=== PATIENT | male | born 1950 | race Hispanic/Latino ===

== ENCOUNTER 2018-10-21 17:22 | Inpatient (IN) | payer MEDICARE ==
[~2018-10-21] VITALS: Ht 167.6 cm; Wt 76.4 kg
[~2018-10-21 17:22] MED LIST: AMLODIPINE BESY10 MG PO; ASPIR 8181 MG PO; CARVEDILOL6.25 MG PO; FISH OIL300 MG PO; LOSARTAN POTAS100 MG PO; METFORMIN HCL1000 MG PO; METFORMIN HCL850 MG PO; MICARDIS40 MG PO; NITROSTAT0.4 MG SL; PLAVIX75 MG PO; ZOCOR40 MG PO
[2018-10-21] MEDS ORDERED: PANTOPRAZOLE 40 MG 10ML VIAL IV STA (18:35)
[2018-10-21] MEDS ORDERED: SODIUM CHLORIDE 0.9% 1000ML 1,000 ML IV STA (18:35)
[2018-10-21] MEDS ORDERED: MORPHINE SULFATE INJ 4 MG/ML INJ 1ML IV ONE (19:45)
[2018-10-21] MEDS ORDERED: MORPHINE SULFATE 5 MG/ML VIAL IV ONE (19:45)
[2018-10-21 19:46] LABS: BASOPHILS % 0.3 % (0.0-1.0); EOSINOPHILS % 0.3 % (0.0-6.0); HEMOGLOBIN 14.9 g/dL (14.0-18.0); LYMPHOCYTES # (AUTO) 0.9 (1.0-3.2); LYMPHOCYTES % 9.4 % (18.0-39.1); MEAN CORPUSCULAR HEMOGLOBIN 30.8 pg (28-32); MEAN CORPUSCULAR HGB CONC 35.5 g/dL (31-35); MEAN CORPUSCULAR VOLUME 86.8 fL (81-99); MONOCYTES # (AUTO) 0.7 (0.2-0.8); MONOCYTES % 7.8 % (4.4-11.3); NEUTROPHILS # (AUTO) 7.7 (2.1-6.9); NEUTROPHILS % 81.9 % (38.7-80.0); PLATELET COUNT 251 x10e3/uL (140-360); RED BLOOD COUNT 4.84 x10e6/uL (4.3-5.7); RED CELL DISTRIBUTION WIDTH 12.6 % (11.7-14.4)
[2018-10-21 20:01] LABS: ALBUMIN 3.5 g/dL (3.5-5.0); ALBUMIN/GLOBULIN RATIO 1.2 (0.8-2.0); ANION GAP 13.5 mmol/L (8-16); CALCIUM 9.2 mg/dL (8.4-10.2); CREATININE, SERUM 1.34 mg/dL (0.72-1.25); POTASSIUM 3.5 mmol/L (3.5-5.1)
[2018-10-21 20:08] LABS: CREATINE KINASE MB 1.4 ng/mL (0-5.0)
--- NOTE | 2018-10-21 20:12 | NUR ---
NOTIFIED AND AWARE OF CRITICAL LAB VALUE. TROPONIN 1.36.
[2018-10-21] MEDS ORDERED: ASPIRIN 81 MG CHEW TAB PO ONE ×2 (20:15→23:30)
--- NOTE | 2018-10-21 21:27 | Diagnostic Imaging Report ---
Examination: Single AP view of the chest. COMPARISON: None. INDICATION: Abdominal pain DISCUSSION: Lines/tubes: None. Lungs: The lungs are well inflated and clear. No pneumonia or pulmonary edema. Pleura: No pleural effusion or pneumothorax. Heart and mediastinum: The heart and the mediastinum are unremarkable. Bones and soft tissues: No acute bony abnormalities. IMPRESSION: 1. No acute cardiopulmonary abnormalities. Signed by: Dr. Tiago Ness M.D. on 10/21/2018 9:24 PM
[2018-10-21 21:28] LABS: BILIRUBIN,URINE NEGATIVE (NEGATIVE); CLARITY,URINE CLEAR (CLEAR); COLOR,URINE YELLOW (YELLOW); KETONES,URINE NEGATIVE (NEGATIVE); LEUKOCYTE ESTERASE ,URINE NEGATIVE (NEGATIVE); NITRITE,URINE NEGATIVE (NEGATIVE); PROTEIN,URINE DIPSTICK 2+ (NEGATIVE); URINE UROBILINOGEN 0.2 mg/dL (0.2 - 1)
--- NOTE | 2018-10-21 21:39 | Diagnostic Imaging Report ---
EXAMINATION: CT of the abdomen and pelvis with contrast. TECHNIQUE: Helical CT images of the abdomen and pelvis were performed from the lung bases to the lesser trochanters after the intravenous administration of 100 cc of Omnipaque 300 and the oral administration of none. Coronal and sagittal reformatted images were obtained.Dose modulation, iterative reconstruction, and/or weight based adjustment of the mA/kV was utilized to reduce the radiation dose to as low as reasonably achievable. COMPARISON: None. CLINICAL HISTORY:Abdominal pain. DISCUSSION: ABDOMEN/PELVIS: LOWER THORAX:Unremarkable. HEPATOBILIARY: No focal hepatic lesions. No intra-or extrahepatic biliary ductal dilation. The gallbladder is normal. SPLEEN: No splenomegaly. PANCREAS: No focal masses or ductal dilatation. ADRENALS: No adrenal nodules. KIDNEYS/URETERS: No hydronephrosis, stones, or solid mass lesions. PELVIC ORGANS/BLADDER: The bladder is normal. PERITONEUM/RETROPERITONEUM: No free air or fluid. LYMPH NODES: No intra-abdominal, retroperitoneal, pelvic or inguinal lymphadenopathy. VESSELS: Atherosclerotic calcifications and mild narrowing of the infrarenal abdominal aorta. GI TRACT: No distention or wall thickening. Scattered diverticulosis without inflammatory change. Appendix normal. BONES AND SOFT TISSUE: No bony destructive lesions. No soft tissue abnormalities. IMPRESSION: No acute CT finding. Signed by: Dr. Tiago Ness M.D. on 10/21/2018 9:35 PM
[2018-10-21] MEDS ORDERED: SODIUM CHLORIDE 0.9% 1000ML 1,000 ML ONE (21:41)
[2018-10-21 21:42] LABS: BACTERIA,URINE FEW /HPF; EPITHELIAL CELLS,URINE MODERATE /LPF; HYALINE CASTS 0-1 (0-1); MUCUS,URINE FEW (RARE); RBC,URINE 0-5 /HPF (0-5)
[2018-10-21] MEDS ORDERED: SODIUM CHLORIDE 0.9% 50ML 50 ML ONE (22:17)
[2018-10-21] MEDS ORDERED: IOPAMIDOL 370 MG/ML 200 ML INFUS..BTL INJ ONE (22:17)
[2018-10-21] MEDS ORDERED: NITROGLYCERIN 2% OINT 1 GM PKT TOP PRN (22:30)
[2018-10-21] MEDS ORDERED: SODIUM CHLORIDE FLUSH 10 ML SYR INJ PRN (23:30)
[2018-10-21] MEDS ORDERED: DEXTROSE 50% SYRINGE 50 ML IV PRN (23:30)
--- OUTSIDE RECORDS SUMMARY | 2018-10-21 23:33 | XMS REPORT ---
Author Author [facility] Address Unknown Phone Unavailable Care Team Providers Care Advertising Rep Name Role Phone Mary Anne RUIZ Unavailable Unavailable Problems This patient has no known problems. Allergies, Adverse Reactions, Alerts This patient has no known allergies or adverse reactions. Medications This patient has no known medications. Results Test Description Test Time Test Comments Text Results Atomic Results Result Comments CT ABDOMEN/PELVIS W 2018-10-21 21:27:00 [place] [address] Patient Name: LG SHANKS MR #: [id number] : 1950 Age/Sex: 68/M Req #: [id number] Adm Physician: Ordered by: CHANG HUSSEIN NET UI DEVELOPER Report #: [id number] Location: ER Room/Bed: Procedure: [id number] CT/CT ABDOMEN/PELVIS W Exam Date: 10/21/18 Exam Time: 2014 REPORT STATUS: Signed EXAMINATION: CT of the abdomen and pelvis with co ntrast. TECHNIQUE: Helical CT images of the abdomen and pelvis were performed from the lung bases to the lesser trochanters after the intravenous administration of 100 cc of Omnipaque 300 and the oral administration of none. Coronal and sagittal reformatted images were obtained.Dose modulation, iterative reconstruction, and/or weight based adjustment of the mA/kV was utilized to reduce the radiation dose to as low as reasonably achievable. COMPARISON: None. CLINICAL HISTORY:Abdominal pain. DISCUSSION: ABDOMEN/PELVIS: LOWER THORAX:Unremarkable. HEPATOBILIARY: No focal hepatic lesions. No intra-or extrahepatic biliary ductal dilation. The gallbladder is normal. SPLEEN: No splenomegaly. PANCREAS: No focal masses or ductal dilatation. ADRENALS: No adrenal nodules. KIDNEYS/URETERS: No hydronephrosis, stones, or solid mass lesions. PELVIC ORGANS/BLADDER: The bladder is normal. PERITONEUM/RETROPERITONEUM: No free air or fluid. LYMPH NODES: No intra-abdominal, retroperitoneal, pelvic or inguinal lymphadenopathy. VESSELS: Atherosclerotic calcifications and mild narrowing of the infrarenal abdominal aorta. GI TRACT: No distention or wall thickening. Scattered diverticulosis without inflammatory change. Appendix normal. BONES AND SOFT TISSUE: No bony destructive lesions. No soft tissue abnormalities. IMPRESSION: No acute CT finding. Signed by: Dr. Teresa Barnes M.D. on 10/21/2018 9:35 PM Dictated By: TERESA BARNES MD 34 Transcribed By: JOSE MARIA on 10/21/182134 COPY TO: CHANG HUSSEIN NET UI DEVELOPER CHEST SINGLE (PORTABLE) 2018-10-21 21:23:00 [place] [address] Patient Name: LG SHANKS MR #: [id number] : 1950 Age/Sex: 68/M Req #: [id number] Adm Physician: Ordered by: LUCY RUIZ MD Report #: [id number] Location: ER Room/Bed: Procedure: [id number] DX/CHEST SINGLE (PORTABLE) Exam Date: 10/21/18 Exam Time: 1909 REPORT STATUS: Signed Examination: Single AP view of the chest. COMPARISON: None. INDICATION: Abdominal pain DISCUSSION: Lines/tubes: None. Lungs: The lungs are well inflated and clear. No pneumonia or pulmonary edema. Pleura: No pleural effusion or pneumothorax. Heart and mediastinum: The heart and the mediastinum are unremarkable. Bones and soft tissues: No acute bony abnormalities. IMPRESSION: 1. No acute cardiopulmonary abnormalities. Signed by: Dr. Teresa Barnes M.D. on 10/21/2018 9:24 PM Dictated By: TERESA BARNES MD 23 Transcribed By: JOSE MARIA on 10/21/182123 COPY TO: LUCY RUIZ MD
[2018-10-22] VITALS (10 sets, daily range): BP systolic 162–189; BP diastolic 77–94
--- NOTE | 2018-10-22 00:43 | NUR ---
PT ARRIVED BY WHEELCHAIR TO ROOM 102. PT IS AAOX3, RR EVEN AND NON-LABORED, ON ROOM AIR. NO S/SX OF DISTRESS NOTED. ORIENTED PT TO HOSPITAL ROOM, CALL LIGHT, BED CONTROLS AND LIGHTS. LEFT PT LAYING SEMI FOWLERS IN BED, BED IN LOW LOCKED POSITION, SIDE RAILS UPX2, CALL LIGHT AND PHONE WITHIN REACH.
[2018-10-22] MEDS ORDERED: INDOMETHACIN25 MG PO (01:23)
[2018-10-22] MEDS ORDERED: AMLODIPINE BESYL5 MG PO (01:23)
[2018-10-22] MEDS ORDERED: PRAVASTATIN SOD10 MG PO (01:23)
[2018-10-22] MEDS: FAMOTIDINE 20 MG/2 ML VIAL IV SCH ×3 (01:52→23:56)
[2018-10-22 04:01] LABS: BASOPHILS % 0.4 % (0.0-1.0); EOSINOPHILS # (AUTO) 0.1 (0.0-0.4); EOSINOPHILS % 1.6 % (0.0-6.0); HEMATOCRIT 37.7 % (38.2-49.6); HEMOGLOBIN 13.4 g/dL (14.0-18.0); LYMPHOCYTES # (AUTO) 1.3 (1.0-3.2); LYMPHOCYTES % 17.3 % (18.0-39.1); MEAN CORPUSCULAR HEMOGLOBIN 30.8 pg (28-32); MEAN CORPUSCULAR HGB CONC 35.5 g/dL (31-35); MEAN CORPUSCULAR VOLUME 86.7 fL (81-99); MONOCYTES # (AUTO) 0.8 (0.2-0.8); MONOCYTES % 10.1 % (4.4-11.3); NEUTROPHILS # (AUTO) 5.3 (2.1-6.9); NEUTROPHILS % 70.2 % (38.7-80.0); PLATELET COUNT 221 x10e3/uL (140-360); RED BLOOD COUNT 4.35 x10e6/uL (4.3-5.7); RED CELL DISTRIBUTION WIDTH 12.5 % (11.7-14.4)
[2018-10-22 04:23] LABS: ALBUMIN 3.1 g/dL (3.5-5.0); ALBUMIN/GLOBULIN RATIO 1.2 (0.8-2.0); ANION GAP 10.3 mmol/L (8-16); CALCIUM 8.9 mg/dL (8.4-10.2); CHOL/HDL RATIO 6.1 (3.9-4.7); CREATININE, SERUM 1.34 mg/dL (0.72-1.25); POTASSIUM 3.3 mmol/L (3.5-5.1)
[2018-10-22 04:51] LABS: CREATINE KINASE MB 1.4 ng/mL (0-5.0)
--- NOTE | 2018-10-22 05:28 | NUR ---
SPOKE WITH MD Leah RUTLEDGE CONCERNING ELEVATED TROPONIN LEVEL AND ELEVATED BP. NEW ORDERS RECEIVED.
--- NOTE | 2018-10-22 06:08 | NUR ---
H&P CHIEF COMPLAINT: abdominal pain. HISTORY OF PRESENT ILLNESS: A 65-year-old man, PCP , developed abdominal pain, found to have elevated troponins. No dizziness. PAST MEDICAL HISTORY: Myocardial infarction, status post stent placement 3 years ago, diabetes mellitus, type 2, which has been poorly controlled, hypertension, and hyperlipidemia, Right ischemic stroke, KEE, HTN emergency, UTI, CAD PAST SURGICAL HISTORY: Coronary stent placement 3 years ago in 2014. ALLERGIES: PER ELECTRONIC MEDICAL RECORD. FAMILY HISTORY: Stroke in a sister who is since . The also had diabetes mellitus. SOCIAL HISTORY: The patient has a daughter who is involved in his care. Remote history of smoking. Quit about 30 years ago. No alcohol or illicits. He is a retired set up machinist. MEDICATIONS: Per electronic medical records. REVIEW OF SYSTEMS: Denies any dizziness, chest pain, shortness of breath, fever, chills, sweats, nausea, vomiting, or diarrhea; no skin rash/vision changes. PHYSICAL EXAMINATION VITAL SIGNS: revd GENERAL: A tired-appearing man resting in bed. HEENT: Anicteric. Pupils respond to light. No oral lesions. No sinus tenderness. CARDIOVASCULAR: Normal S1 and S2. LUNGS: Moderate breath sounds. No wheezing. ABDOMEN: Soft, nontender and nondistended. EXTREMITIES: No edema or calf tenderness. NEUROLOGICAL: He is alert and oriented times 3. He moves all extremities, but he has 4/5 motor strength in his left upper and lower extremity. He has no visual field deficits. SKIN: Dry. PSYCHIATRIC: Flat affect. LABS: Reviewed. MEDICATIONS: Reviewed. ASSESSMENT AND PLAN: This is a 68-year-old man: NSTEMI RBBB CAD Former smoker HTG DM2 Hx stroke Overweight KEE PLAN lovenox bid asa/statin/ccb; echo; cardio Saul Salas MD, PhD.
[2018-10-22] MEDS: HYDRALAZINE HCL 20 MG/ML VIAL IV PRN ×3 (06:28→20:36)
[2018-10-22] MEDS: NITROGLYCERIN 2% OINT 1 GM PKT TOP SCH ×3 (06:28→17:23)
[2018-10-22] MEDS ORDERED: ENOXAPARIN INJ 80 MG/0.8 ML SYR SC SCH (07:30)
[2018-10-22] MEDS: INSULIN REGULAR, HUMAN 100 UNIT/1 ML 3ML VIAL SQ SCH ×4 (07:30→20:35)
--- NOTE | 2018-10-22 07:38 | NUR ---
Received patient this morning, alert and in bed sleeping, on continuous tele monitoring, call light within reach, will monitor. Notified attending of hypokalemia, will replace, new BP meds added for better BP control, will monitor.
[2018-10-22] MEDS: ENOXAPARIN INJ 80 MG/0.8 ML SYR SC SCH ×2 (08:41→20:34)
[2018-10-22] MEDS: ASPIRIN 81 MG ENTERIC COATED PO SCH (08:41)
[2018-10-22] MEDS: LOSARTAN POTASSIUM 100 MG TAB PO SCH ×2 (08:41→17:02)
[2018-10-22] MEDS: AMLODIPINE BESYLATE 5 MG TAB PO SCH (08:42)
[2018-10-22 13:04] LABS: CREATINE KINASE MB 1.6 ng/mL (0-5.0)
[2018-10-22] MEDS ORDERED: POTASSIUM CHLORIDE 20 MEQ TAB CR PO STA (13:20)
[2018-10-22] MEDS ORDERED: CLOPIDOGREL BISULFATE 75 MG TAB PO ONE (14:15)
[2018-10-22] MEDS ORDERED: CLOPIDOGREL BISULFATE 300 MG TAB-DO NOT STOCK PO ONE (14:45)
--- NOTE | 2018-10-22 15:18 | NUR ---
Patient signed consent for procedure tomorrow, P2Y12 given and tolerated well. Will be NPO from midnight tonight and patient educated.
--- NOTE | 2018-10-22 17:23 | NUR ---
Patient with elevated BP, medicated with hydralazine PRN per orders, in bed, no cardiac events at this time, will have coronary angiogram with possible intervention tomorrow.
--- NOTE | 2018-10-22 20:45 | Consultation ---
DATE OF CONSULTATION: 10/22/2018 Cardiology Consultation REASON FOR CONSULTATION: Elevated troponins. HISTORY OF PRESENT ILLNESS: This is a 68-year-old man with a history of prior myocardial infarction, status post percutaneous coronary intervention in 2013 of the left circumflex coronary artery, hypertension, hyperlipidemia, diabetes mellitus, who presented to the emergency department with acute abdominal pain. His symptoms were sudden onset, sqsoukek-tm-nrxgiv in intensity, radiation into the epigastric area, associated with some atypical shortness of breath. The patient travels to [place] frequently and is currently seeing doctors there. Upon arrival here, he was noted to be hypertensive with an elevated troponin with initial value of 1.36. REVIEW OF SYSTEMS: A 12-point review of system was conducted, is negative otherwise as stated above in the HPI. PAST MEDICAL HISTORY: As stated above in the HPI. PAST SURGICAL HISTORY: Percutaneous coronary intervention. PAST FAMILY HISTORY: No premature coronary artery disease or cardiac . SOCIAL HISTORY: No illicit drug, alcohol, or tobacco use. ALLERGIES: NO KNOWN DRUG ALLERGIES. MEDICATIONS: See medication reconciliation form. PHYSICAL EXAMINATION: VITAL SIGNS: Temperature is 97.6, heart rate 65, respirations are 16, blood pressure is 169/83, oxygen saturation 98% on room air. GENERAL: Well appearing, well built, no apparent distress. Alert and oriented x3. HEENT: Head; normocephalic, atraumatic. Eyes, the extraocular muscles are intact. Conjunctivae are clear. NECK: No JVD. No bruits. CARDIOVASCULAR: Regular rate and rhythm. LUNGS: Clear to auscultation. ABDOMEN: Soft, nontender, nondistended. EXTREMITIES: No clubbing, cyanosis, or edema. VASCULAR: 2+ pulses. SKIN: Warm, dry, intact. LABORATORY DATA: Reviewed. Creatinine is 1.3. Troponins have down trended from 1.3-0.5. His hemoglobin A1c is 10.5, total cholesterol is 215, LDL is 110. A 12-lead electrocardiogram showed normal sinus rhythm, right bundle-branch block. A 2D echocardiogram showed preserved left ventricular systolic function with estimated ejection fraction of 50-55, with inferolateral hypokinesis. IMPRESSION: 1. Vmf-TK-jlacxvuvr myocardial infarction. 2. Uncontrolled diabetes mellitus. 3. Hypertension. 4. Hyperlipidemia. 5. Coronary artery disease, status post prior percutaneous coronary intervention in 2013. RECOMMENDATIONS: Continue therapeutic Lovenox for anticoagulation. We will resume Plavix in addition to aspirin. Continue atorvastatin, losartan, and amlodipine. Add beta-mika. A 2D echocardiogram showed overall preserved left ventricular systolic function with inferolateral hypokinesis. The patient will need cardiac catheterization with possible coronary intervention tomorrow morning. DO PONCHO Guerrero/STU /[id number]
[2018-10-22] MEDS ORDERED: ATORVASTATIN 20 MG TAB PO SCH (21:00)
[2018-10-23] VITALS (9 sets, daily range): BP systolic 126–189; BP diastolic 78–88
[2018-10-23] MEDS: NITROGLYCERIN 2% OINT 1 GM PKT TOP SCH ×4 (00:30→17:09)
--- NOTE | 2018-10-23 06:31 | NUR ---
The patient is sitting on the chair, family at bedside. He has been NPO since midnight for procedure today. He received a shower with Hibiclens. Tele in place SR at 94. RAC IV patent. Nitro patch placed on his left upper arm. Reports no pain or discomfort at this time.
[2018-10-23] MEDS: INSULIN REGULAR, HUMAN 100 UNIT/1 ML 3ML VIAL SQ SCH ×4 (07:30→20:26)
--- NOTE | 2018-10-23 07:31 | NUR ---
RECEIVED PATIENT AWAKE RESTING WITH NO SIGNS OF DISTRESS. BED LOW, WHEELS LOCKED, SIDE RAILS X2. CALL LIGHT IN REACH. FAMILY AT BEDSIDE WILL CONTINUE TO MONITOR PATIENT.
--- NOTE | 2018-10-23 07:36 | NUR ---
IM- Progress note O/N ;no events REVIEW OF SYSTEMS: Denies any dizziness, chest pain, shortness of breath, fever, chills, sweats, nausea, vomiting, or diarrhea; no skin rash/vision changes. PHYSICAL EXAMINATION VITAL SIGNS: revd GENERAL: A tired-appearing man resting in bed. HEENT: Anicteric. Pupils respond to light. No oral lesions. No sinus tenderness. CARDIOVASCULAR: Normal S1 and S2. LUNGS: Moderate breath sounds. No wheezing. ABDOMEN: Soft, nontender and nondistended. EXTREMITIES: No edema or calf tenderness. NEUROLOGICAL: He is alert and oriented times 3. He moves all extremities, but he has 4/5 motor strength in his left upper and lower extremity. He has no visual field deficits. SKIN: Dry. PSYCHIATRIC: Flat affect. LABS: Reviewed. MEDICATIONS: Reviewed. ASSESSMENT AND PLAN: This is a 68-year-old man: NSTEMI RBBB CAD Former smoker HTG DM2 Hx stroke Overweight KEE PLAN lovenox bid asa/statin/ccb; echo; cardio 10/23/18 Hba1c/LDL 10.5/110- Uncontrolled DM; start lantus; [facility] pending; Saul Salas MD, PhD.
[2018-10-23] MEDS: ASPIRIN 81 MG ENTERIC COATED PO SCH (07:37)
[2018-10-23] MEDS: AMLODIPINE BESYLATE 5 MG TAB PO SCH (07:37)
[2018-10-23] MEDS: LOSARTAN POTASSIUM 100 MG TAB PO SCH ×2 (07:37→17:08)
[2018-10-23] MEDS: CLOPIDOGREL BISULFATE 75 MG TAB PO SCH (07:37)
[2018-10-23] MEDS: HYDRALAZINE HCL 20 MG/ML VIAL IV PRN ×2 (07:52→21:20)
--- NOTE | 2018-10-23 07:52 | NUR ---
PRN HYDRALAZINE GIVEN FOR BP 176/87
[2018-10-23] MEDS ORDERED: MIDAZOLAM HCL 2 MG/2 ML VIAL ONE (09:49)
[2018-10-23] MEDS ORDERED: HEPARIN SOD/SOD CHLORIDE 2,000 ML ONE (09:49)
[2018-10-23] MEDS ORDERED: VERAPAMIL HCL 2.5 MG/ML 2 ML VIAL ONE (09:49)
[2018-10-23] MEDS ORDERED: LIDOCAINE HCL 2% LOCAL 20 ML VIAL ONE (09:49)
[2018-10-23] MEDS ORDERED: FENTANYL CITRATE/PF 100MCG/2 ML INJ ONE (09:49)
[2018-10-23] MEDS ORDERED: SODIUM CHLORIDE 0.9% 1000ML 1,000 ML ONE (09:50)
[2018-10-23] MEDS ORDERED: IOPAMIDOL 370 MG/ML 200 ML INFUS..BTL INJ ONE (09:50)
--- NOTE | 2018-10-23 09:54 | NUR ---
PATIENT A/O X3, EVEN RESPIRATIONS ON RA. BOWEL SOUNDS ACTIVE, SKIN INTACT, NO EDEMA. RIGHT AC IV SL. IV INTACT/PATENT. PATIENT AMBULATES WITH STANDBY ASSIST. PATIENT NPO AT THIS TIME FOR PROCEDURE TODAY. FAMILY AT BEDSIDE. CALL LIGHT IN REACH WILL CONTINUE TO MONITOR PATIENT.
--- NOTE | 2018-10-23 10:11 | NUR ---
EDUCATED ABOUT IMM, SIGNED, FILED IN CHART, WITH COPY LEFT WITH FAMILY AT BEDSIDE.
--- NOTE | 2018-10-23 10:57 | NUR ---
PATIENT LEFT TO SPEECH CORRECTION CONSULTANT AT THIS TIME VIA STRETCHER.
[2018-10-23] MEDS: FAMOTIDINE 20 MG/2 ML VIAL IV SCH (11:30)
[2018-10-23] MEDS ORDERED: TICAGRELOR 90 MG TABLET ONE (12:17)
[2018-10-23] MEDS ORDERED: ASPIRIN 325 MG TAB ONE (12:17)
--- NOTE | 2018-10-23 12:32 | NUR ---
PATIENT BACK FROM [employer]. RIGHT GROIN DRESSING CLEAN, DRY, AND INTACT. INFORMED PATIENT ABOUT BEDREST UNTIL 1430. CALL LIGHT IN REACH. WILL CONTINUE TO MONITOR PATIENT.
[2018-10-23] MEDS: TICAGRELOR 90 MG TABLET PO SCH (17:08)
[2018-10-23] MEDS: CARVEDILOL 3.125 MG TAB PO SCH (17:08)
--- NOTE | 2018-10-23 18:54 | Progress Note ---
DATE: 10/23/2018 SUBJECTIVE: The patient denies any chest pain, abdominal pain, or shortness of breath. OBJECTIVE: VITAL SIGNS: Temperature is 99.5, heart rate is 83, respirations are 16, blood pressure is 136/87, ox saturation 96% on room air. GENERAL: Well appearing, well built, no apparent distress. Alert, orient x3. HEENT: Head is normocephalic, atraumatic. CARDIOVASCULAR: Regular rate and rhythm. LUNGS: Clear to auscultation. ABDOMEN: Soft, nontender, nondistended. EXTREMITIES: No clubbing, cyanosis, or edema. CARDIOVASCULAR MEDICATIONS: Reviewed. LABORATORY DATA: Reviewed. TELEMETRY: Monitoring revealed normal sinus rhythm. IMPRESSION: 1. Kjr-TG-hshxpatih myocardial infarction. 2. Uncontrolled diabetes mellitus. 3. Hypertension. 4. Hyperlipidemia. 5. Coronary artery disease, status post prior percutaneous coronary intervention. RECOMMENDATIONS: The patient will undergo cardiac catheterization with possible intervention today. Continue aspirin, statin, beta mika, losartan and amlodipine. We will continue to closely follow along. DO PONCHO Guerrero/MODL /[id number]
--- NOTE | 2018-10-23 19:28 | NUR ---
Report taken from am rn .walking rounds done.lyeing quietly in the bed.
--- NOTE | 2018-10-23 20:10 | NUR ---
Report received from marcia Gaston. Addendum: 10/23/18 at 2105 by Mohamud Ceron RN WRONG PATIENT.
--- NOTE | 2018-10-23 20:16 | NUR ---
Received the Patient from icu in a wheel chair.aaox3.assessment done.no resp.distress.rt groin dressing is dry.iv to left hand #20 is patent.oriented to the unit.bed locked and in lowest position.phone and call light within reach.instructed to call for assistance as needed.keep monitor the pt. Addendum: 10/23/18 at 2105 by Mohamud Ceron RN Wrong pt
[2018-10-23] MEDS: INSULIN GLARGINE 100 UNITS/ML VIAL SQ SCH (20:26)
[2018-10-23] MEDS: ATORVASTATIN 40 MG TAB PO SCH (21:00)
--- NOTE | 2018-10-23 23:31 | NUR ---
Assessment done.no resp.distress.no pain voiced.right groin dressing is dry.family member at bed side.bed locked and in lowest position.phone and call light within reach.instructed to call for assistance as needed.
[2018-10-24] VITALS (9 sets, daily range): BP systolic 125–158; BP diastolic 65–85
--- NOTE | 2018-10-24 05:06 | NUR ---
IM- Progress note O/N ;no events REVIEW OF SYSTEMS: Denies any dizziness, chest pain, shortness of breath, fever, chills, sweats, nausea, vomiting, or diarrhea; no skin rash/vision changes. PHYSICAL EXAMINATION VITAL SIGNS: revd GENERAL: A tired-appearing man resting in bed. HEENT: Anicteric. Pupils respond to light. No oral lesions. No sinus tenderness. CARDIOVASCULAR: Normal S1 and S2. LUNGS: Moderate breath sounds. No wheezing. ABDOMEN: Soft, nontender and nondistended. EXTREMITIES: No edema or calf tenderness. NEUROLOGICAL: He is alert and oriented times 3. He moves all extremities, but he has 4/5 motor strength in his left upper and lower extremity. He has no visual field deficits. SKIN: Dry. PSYCHIATRIC: Flat affect. LABS: Reviewed. MEDICATIONS: Reviewed. ASSESSMENT AND PLAN: This is a 68-year-old man: NSTEMI RBBB CAD Former smoker HTG DM2 Hx stroke Overweight KEE PLAN lovenox bid asa/statin/ccb; echo; cardio 10/23/18 Hba1c/LDL 10.5/110- Uncontrolled DM; start lantus; [facility] pending; 10/24 s/p PCI of RCA and LAD. Saul Salas MD, PhD.
--- NOTE | 2018-10-24 05:06 | NUR ---
IM- Progress note O/N ;no events REVIEW OF SYSTEMS: Denies any dizziness, chest pain, shortness of breath, fever, chills, sweats, nausea, vomiting, or diarrhea; no skin rash/vision changes. PHYSICAL EXAMINATION VITAL SIGNS: revd GENERAL: A tired-appearing man resting in bed. HEENT: Anicteric. Pupils respond to light. No oral lesions. No sinus tenderness. CARDIOVASCULAR: Normal S1 and S2. LUNGS: Moderate breath sounds. No wheezing. ABDOMEN: Soft, nontender and nondistended. EXTREMITIES: No edema or calf tenderness. NEUROLOGICAL: He is alert and oriented times 3. He moves all extremities, but he has 4/5 motor strength in his left upper and lower extremity. He has no visual field deficits. SKIN: Dry. PSYCHIATRIC: Flat affect. LABS: Reviewed. MEDICATIONS: Reviewed. ASSESSMENT AND PLAN: This is a 68-year-old man: NSTEMI RBBB CAD Former smoker HTG DM2 Hx stroke Overweight KEE PLAN lovenox bid asa/statin/ccb; echo; cardio 10/23/18 Hba1c/LDL 10.5/110- Uncontrolled DM; start lantus; [facility] pending; 10/24 s/p PCI of RCA and LAD Saul Salas MD, PhD.
[2018-10-24] MEDS: NITROGLYCERIN 2% OINT 1 GM PKT TOP SCH ×4 (05:43→17:42)
--- NOTE | 2018-10-24 07:00 | NUR ---
BEDSIDE REPORT RECEIVED FROM JESSICA DUENAS. PT DENIES NEEDS AT THIS TIME.
[2018-10-24] MEDS: INSULIN REGULAR, HUMAN 100 UNIT/1 ML 3ML VIAL SQ SCH ×4 (07:30→20:37)
[2018-10-24] MEDS: CARVEDILOL 3.125 MG TAB PO SCH ×2 (08:52→16:54)
[2018-10-24] MEDS: LOSARTAN POTASSIUM 100 MG TAB PO SCH ×2 (08:53→16:54)
[2018-10-24] MEDS: ASPIRIN 81 MG ENTERIC COATED PO SCH (08:53)
[2018-10-24] MEDS: AMLODIPINE BESYLATE 5 MG TAB PO SCH (08:53)
[2018-10-24] MEDS: CLOPIDOGREL BISULFATE 75 MG TAB PO SCH (08:53)
[2018-10-24] MEDS: TICAGRELOR 90 MG TABLET PO SCH ×2 (08:53→16:53)
[2018-10-24] MEDS: FAMOTIDINE 20 MG/2 ML VIAL IV SCH ×2 (11:50)
--- NOTE | 2018-10-24 16:54 | Progress Note ---
DATE: 10/24/2018 Cardiology Progress Note SUBJECTIVE: The patient underwent percutaneous coronary intervention. He denies any chest pain or shortness of breath. OBJECTIVE: VITAL SIGNS: Temperature is 98, heart rate 75, respirations are 20, blood pressure is 144/73, oxygen saturation 95% on room air. GENERAL: He is well appearing, well built, no apparent distress. CARDIOVASCULAR: Regular rate and rhythm. LUNGS: Clear to auscultation. ABDOMEN: Soft, nontender, nondistended. EXTREMITIES: No clubbing, cyanosis, or edema. CARDIOVASCULAR MEDICATIONS: Reviewed. LABORATORY DATA: Reviewed. TELEMETRY: Monitoring revealed normal sinus rhythm. IMPRESSION: 1. Yih-KS-ncveidmpk myocardial infarction. 2. Coronary disease status post percutaneous coronary intervention of the right coronary and left anterior descending coronary arteries. 3. Uncontrolled diabetes mellitus. 4. Hyperlipidemia. 5. Hypertension. RECOMMENDATIONS: The patient underwent successful percutaneous coronary intervention with Dr. Quarles. Continue dual antiplatelet therapy, statin, losartan, beta mika, amlodipine. The patient is stable from a cardiovascular standpoint for discharge with followup in two weeks. Gianluca Vital DO BM/MODL /[id number]
[2018-10-24] MEDS: ATORVASTATIN 40 MG TAB PO SCH (20:33)
[2018-10-24] MEDS: INSULIN GLARGINE 100 UNITS/ML VIAL SQ SCH (20:37)
[2018-10-25] VITALS: BP 152/72
[2018-10-25 00:05] VITALS: BP 152/72
[2018-10-25] MEDS: NITROGLYCERIN 2% OINT 1 GM PKT TOP SCH ×2 (00:15→05:59)
[2018-10-25] MEDS: FAMOTIDINE 20 MG/2 ML VIAL IV SCH (00:15)
[2018-10-25 04:00] VITALS: BP 156/82
[2018-10-25 05:23] VITALS: BP 156/82
--- NOTE | 2018-10-25 06:52 | NUR ---
RECEIVED PATIENT RESTING IN BED. NO ACUTE DISTRESS NOTED. DENIES PAIN OR DISCOMFORT AT THIS TIME. CALL LIGHT WITHIN REACH. BED IN THE LOWEST POSITION.
[2018-10-25] MEDS: INSULIN REGULAR, HUMAN 100 UNIT/1 ML 3ML VIAL SQ SCH (07:30)
[2018-10-25 08:00] VITALS: BP 158/79
[2018-10-25] MEDS: CARVEDILOL 3.125 MG TAB PO SCH (08:30)
[2018-10-25] MEDS: LOSARTAN POTASSIUM 100 MG TAB PO SCH (08:30)
[2018-10-25] MEDS: CLOPIDOGREL BISULFATE 75 MG TAB PO SCH (08:30)
[2018-10-25] MEDS: AMLODIPINE BESYLATE 5 MG TAB PO SCH (08:30)
[2018-10-25] MEDS: ASPIRIN 81 MG ENTERIC COATED PO SCH (08:30)
[2018-10-25] MEDS: TICAGRELOR 90 MG TABLET PO SCH (08:30)
[2018-10-25 09:13] VITALS: BP 158/79
--- NOTE | 2018-10-25 10:25 | NUR ---
D/C summary: Principal Dx: NSTEMI s/p PCI to LAD and RCA Uncontrolled DM2 Hba1c 10.5 RBBB CAD Former smoker HTG KEE Secondary Dx: DM2 Hx stroke Overweight PLAN lovenox bid asa/statin/ccb; echo; cardio 10/23/18 Hba1c/LDL 10.5/110- Uncontrolled DM; start lantus; [facility] pending; 10/24 s/p PCI of RCA and LAD. d/c home f/u PCP 1 week and cardiology 2 weeks Stable d/c>35mins Saul Salas MD, PhD.
[2018-10-25] MEDS ORDERED: COREG3.125 MG PO (10:28)
[2018-10-25] MEDS ORDERED: Atorvastatin PO (10:28)
[2018-10-25] MEDS ORDERED: PLAVIX75 MG PO (10:28)
[2018-10-25] MEDS ORDERED: PEPCID20 MG PO (10:28)
[2018-10-25] MEDS ORDERED: BRILINTA90 MG PO (11:12)
--- NOTE | 2018-10-25 11:51 | NUR ---
RECEIVED DC ORDER FROM MD, PATIENT IS IN STABLE CONDITION. DENIES PAIN OR DISCOMFORT. IV LINE TO RIGHT AC DCD WITH TIP INTACT, PRESSURE APPLIED TO SITE, NO BLEEDING NOTED. DISCHARGE TEACHING PROVIDED TO PATIENT AND DAUGHTER, THEY BOTH VERBALIZED UNDERSTANDING. DISCHARGE FOLDER AND PERSONAL ITEMS ON HAND. MD TO CALL IN PRESCRIPTIONS TO [facility] . PATIENT ACCOMPANIED TO PRIVATE AUTO VIA WHEELCHAIR BY STAFF.
[2018-10-25] MEDS ORDERED: FAMOTIDINE 20 MG TAB PO SCH (21:00)
--- NOTE | 2018-12-14 18:54 | Operative Report ---
DATE OF PROCEDURE: 10/23/2018 SURGEON: Asher Quarles MD INDICATION FOR PROCEDURE: Non-ST elevation SD. PREPROCEDURE ASSESSMENT: The risks, benefits, and alternatives to treatment were explained to the patient prior to the procedure. The patient was brought to the cardiac cath laboratory in a fasting state. Informed consent was obtained as documented in medical record. The patient was deemed to be an appropriate candidate for moderate sedation. PROCEDURES PERFORMED: 1. Coronary angiography, right radial approach. 2. Left heart catheterization. 3. Percutaneous coronary intervention to the right coronary artery with drug-eluting stent x1. 4. Percutaneous coronary intervention to the left anterior descending with drug-eluting stent x2. PROCEDURE IN DETAIL: The patient was brought to the cardiac catheterization laboratory in a fasting state. Right wrist was prepped and draped in a sterile fashion. A 6-[place] Slender sheath was inserted in the right radial artery using modified Seldinger technique without any difficulty. Coronary angiography was performed using a 5-[place] Tamara radial catheter. Multiple orthogonal views were taken of each coronary artery. Coronary angiography demonstrated 80% ulcerated plaque in the mid LAD and 99% ulcerated plaque in the proximal RCA. We decided to proceed with PCI after informing the patient. For PCI of the LAD, a 6-[place] Islander XB 3.5 guide catheters were used, which provided excellent support. A run-through wire was used to cross the lesion. A 2.0 x 12 mm balloon was used to dilate the lesion. PCI was performed using overlapping 3.5 x 15 and 3.5 x 12 mm drug-eluting stent. Excellent angiographic result without significant dissection thrombus or spasm. For PCI of the RCA and JR4 guide catheter was used, this provided adequate support. Lesion was crossed using the same after a run-through wire. Lesion was directly stented using 3.0 x 26 mm [place] drug-eluting stent. This provided excellent angiographic result without significant dissection or thrombus or spasm. The case ended without any significant complication. IV boluses of heparin were used as needed to keep ACT over 300. Dual antiplatelet therapy was administered in the farm labor contractor with aspirin and ticagrelor loading doses. SIGNIFICANT FINDINGS: Left main. No significant disease. LAD, large vessel goes to the apex from large diagonal branch, 80% ulcerated plaque in the mid LAD, left circumflex, medium-sized vessel, two significant OM branches. There is 50% lesion in the mid circumflex after the origin of first OM. RCA, large dominant RCA, 99% plaque in the proximal portion with ANTONI-3 flow distally. Left heart catheterization, LVEDP, 18 mmHg. No gradient across the aortic valve. SPECIMEN REMOVED: None. GRAFTS AND IMPLANTS: Drug-eluting stent x3. ESTIMATED BLOOD LOSS: 20 mL. COMPLICATIONS: None. FINAL RECOMMENDATIONS: 1. Continue aspirin and ticagrelor therapy for life. 2. Follow up in clinic 2 weeks post procedure. MD CHANG Alfred/ELIECERL /[id number]
== END 2018-10-25 11:51 | disposition home or self-care (01) | DRG 247 ==
LOC: ER 17:22 → ERHOLD 23:30 → MED/SURG 10-22 00:43
PROVIDERS: ADMIT Internal Medicine; ATTEND Internal Medicine
PROC: 027135Z Dilation of Coronary Artery, Two Arteries with Two Drug-eluting Intraluminal Devices, Percutaneous Approach (ICD-10-PCS; principal; 2018-10-23)
PROC: B2111ZZ Fluoroscopy of Multiple Coronary Arteries using Low Osmolar Contrast (ICD-10-PCS; 2018-10-23)
DX: I21.4 Non-ST elevation (NSTEMI) myocardial infarction (principal); N17.9 Acute kidney failure, unspecified; I25.2 Old myocardial infarction; I25.10 Atherosclerotic heart disease of native coronary artery without angina pectoris; E11.65 Type 2 diabetes mellitus with hyperglycemia; I10 Essential (primary) hypertension; E78.5 Hyperlipidemia, unspecified; Z95.5 Presence of coronary angioplasty implant and graft; I45.10 Unspecified right bundle-branch block; Z87.891 Personal history of nicotine dependence; E66.3 Overweight; Z86.73 Personal history of transient ischemic attack (TIA), and cerebral infarction without residual deficits; Z68.27 Body mass index [BMI] 27.0-27.9, adult; Z79.84 Long term (current) use of oral hypoglycemic drugs
CPT/HCPCS: 36415; 71045; 74177; 80053; 80061; 81001; 82550; 82553; 82948; 83036; 83690; 83880; 84484; 85025; 92928; 92929; 93005; 93306; 93454; 99284; C1725; C1760; C1769; C1874; C1887; J0360; J1650; J1815; J1817; J2001; J2250; J2270; J3010; J7030; Q9967

== ENCOUNTER 2019-09-15 16:03 | Inpatient (IN) | payer MEDICARE, OTHER ==
[~2019-09-15] VITALS: Ht 167.6 cm; Wt 77.1 kg
[~2019-09-15 16:03] MED LIST changes: +AMLODIPINE BESYL5 MG PO; +Atorvastatin PO; +BRILINTA90 MG PO; +COREG3.125 MG PO; +INDOMETHACIN25 MG PO; +PEPCID20 MG PO; +PRAVASTATIN SOD10 MG PO
[2019-09-15] MEDS ORDERED: ASPIRIN 81 MG CHEW TAB PO ONE (17:00)
--- NOTE | 2019-09-15 18:18 | Emergency Department Note ---
History of Present Illnes History of Present Illness Chief Complaint: General Medicine Complaints History of Present Illness This is a 69 year old male went to clothing store with , became SOB and went outside, says his equilibrium was off and he fell to ground, no LOC, then on the way home had slurred speech lasting almost 1 hour. Historian: Patient Arrival Mode: Car Program Facilitator Required: No Onset (how long ago): hour(s) Severity: moderate Onset quality: sudden Timing of current episode: constant Progression: resolved Chronicity: new Context: recent illness Relieving factors: none Exacerbating factors: none Associated symptoms: shortness of breath, syncope (near-syncope), weakness, other (off-balance) Treatments prior to arrival: none Past Medical/Family History Physician Review I have reviewed the patient's past medical and family history. Any updates have been documented here. Past Medical History Recent Fever: No Clinical Suspicion of Infectio: No New/Unexplained Change in Ment: No Past Medical History: Hypertension, Diabetes, Hyperlipedemia Other Medical History: HIGH CHOLESTEROL/TRIGLYCERIDES Past Surgical History: PCI Other Surgery: STENTS Social History Smoking Cessation: Never Smoker Counseling Performed: No Alcohol Use: Occasional Any Illegal Drug Use: No TB Exposure/Symptoms: No Family History Family history of heart diseas: Yes Other Last Tetanus: unknown Any Pre-Existing Lines (PICC,: No Review of Systems Review of Systems Constitutional: weakness EENTM: no symptoms Cardiovascular: no symptoms Respiratory: no symptoms Gastrointestinal: no symptoms Genitourinary: no symptoms Musculoskeletal: no symptoms Neurological: as per HPI, weakness Psychological: no symptoms Endocrine: no symptoms Hematological/Lymphatic: no symptoms Review of other systems All other systems reviewed and negative. Physical Exam Related Data Allergies: Coded Allergies: No Known Allergies (Unverified , 04/17/14) Triage Vital Signs Vital Signs Date Time Temp Pulse Resp B/P (MAP) Pulse Ox O2 Delivery O2 Flow Rate FiO2 09/15/19 16:55 98.2 58 16 206/103 98 Physical Exam CONSTITUTIONAL Constitutional: well-developed, well-nourished HENT HENT: normocephalic, atraumatic, oropharynx clear/moist, nose normal HENT L/R: left ext ear normal, right ext ear normal EYES Eyes: PERRL, conjunctivae normal NECK Neck: ROM normal PULMONARY Pulmonary: effort normal, breath sounds normal CARDIOVASCULAR Cardiovascular: regular rhythm, heart sounds normal, capillary refill normal, normal rate GASTROINTESTINAL Abdominal: soft, nontender, bowel sounds normal GENITOURINARY Genitourinary: exam deferred SKIN Skin: warm, other (abrasion to right knee, small abrasions to right elbow) MUSCULOSKELETAL Musculoskeletal: ROM normal NEUROLOGICAL Neurological: alert, oriented x 3, no gross motor or sensory deficits PSYCHOLOGICAL Psychological: mood/affect normal, judgement normal Results Laboratory Lab results reviewed: No Imaging Imaging results reviewed: Yes Diagnostics Tests Diagnostic test(s) reviewed: Yes Procedures 12 Lead ECG Interpretation Program Facilitator: Interpreted by ED physician Date: September 15, 2019 Time: 18:26 Prior CAR REFINISHER tracings: reviewed Rhythm: sinus rhythm Ectopy: PVC's Rate: normal (64) QRS axis: normal ST segments normal: Yes T waves flattening: I, aVL Clinical Impression: abnormal ECG Critical Care Time Subsequent provider I assumed direction of critical care for this patient from another provider of my specialty. Assessment & Plan Reassessment Reassessment near-syncope vs off-balance with fall and also had episode of SOB - check cbc, chem, cardiac enzymes, ecg, CT brain - r/o stemi/nstemi, electrolyte abnl, TIA/CVA, cerebral bleed Assessment & Plan Final Impression: (1) Near syncope (2) Dizziness (3) TIA (transient ischemic attack) Assessment & Plan admit Depart Disposition: ADMITTED Last Vital Signs Date Time Temp Pulse Resp B/P (MAP) Pulse Ox O2 Delivery O2 Flow Rate FiO2 09/15/19 16:55 98.2 58 16 206/103 98 Home Meds Active Scripts Famotidine (PEPCID) 20 Mg Tablet, 20 MG PO BID, #60 TAB Prov:YAZAN LOO MD 10/25/18 Carvedilol (COREG) 3.125 Mg Tab, 6.25 MG PO BIDWM for 30 Days, TAB Prov:YAZAN LOO MD 10/25/18 [Atorvastatin] 80 MG TAB No Conflict Check, 80 MG PO HS for 30 Days Prov:YAZAN LOO MD 10/25/18 Reported Medications Ticagrelor (BRILINTA) 90 Mg Tablet, 90 MG PO BID 10/25/18 Indomethacin (INDOMETHACIN) 25 Mg Capsule, 25 MG PO DAILY 10/22/18 Amlodipine Besylate (AMLODIPINE BESYLATE) 5 Mg Tablet, 5 MG PO DAILY, #30 TAB 10/22/18 Aspirin (ASPIR 81) 81 Mg Tablet.dr, 81 MG PO DAILY 07/12/16 Metformin Hcl (METFORMIN HCL) 850 Mg Tablet, 850 MG PO BID, #30 TAB 07/12/16 Losartan Potassium (LOSARTAN POTASSIUM) 100 Mg Tablet, 50 MG PO BID, TAB 07/12/16 Medications in the ED Aspirin 81 mg PRN ONCE PO ; Start 09/15/19 at 17:00; Stop 09/15/19 at 17:27; Status DC ANDRY BRO MD September 15, 2019 18:18
[2019-09-15] MEDS ORDERED: HYDRALAZINE HCL 20 MG/ML VIAL IV STA (18:20)
--- NOTE | 2019-09-15 18:43 | NUR ---
urinal provided in order for patient to provide a urine sample. Educated to press call mclean once sample is obtained.
[2019-09-15] MEDS ORDERED: DEXTROSE 50% SYRINGE 50 ML IV PRN (18:45)
[2019-09-15] MEDS ORDERED: MORPHINE SULFATE 2 MG/ML SYR 1ML IV PRN (18:45)
[2019-09-15] MEDS ORDERED: SODIUM CHLORIDE 0.9% 1000ML 1,000 ML IV SCH (18:45)
[2019-09-15] MEDS ORDERED: ONDANSETRON HCL INJ 2MG/ML 2ML 2 MG/ML VIAL IV PRN (18:45)
[2019-09-15 18:49] LABS: BASOPHILS # (AUTO) 0.1 (0.0-0.1); BASOPHILS % 0.6 % (0.0-1.0); EOSINOPHILS # (AUTO) 0.1 (0.0-0.4); HEMATOCRIT 42.2 % (38.2-49.6); HEMOGLOBIN 14.2 g/dL (14.0-18.0); LYMPHOCYTES # (AUTO) 1.4 (1.0-3.2); LYMPHOCYTES % 14.8 % (18.0-39.1); MEAN CORPUSCULAR HEMOGLOBIN 29.3 pg (28-32); MEAN CORPUSCULAR HGB CONC 33.6 g/dL (31-35); MEAN CORPUSCULAR VOLUME 87.2 fL (81-99); MONOCYTES # (AUTO) 0.8 (0.2-0.8); MONOCYTES % 8.4 % (4.4-11.3); NEUTROPHILS % 74.8 % (38.7-80.0); PLATELET COUNT 280 x10e3/uL (140-360); RED BLOOD COUNT 4.84 x10e6/uL (4.3-5.7); RED CELL DISTRIBUTION WIDTH 12.9 % (11.7-14.4)
--- NOTE | 2019-09-15 19:05 | Diagnostic Imaging Report ---
EXAMINATION: Head CT HISTORY: Status post fall, heard to speech speech, and balance COMPARISON: Head CT 07/12/2016 report TECHNIQUE: Helical axial images of the head were obtained. Reformatted coronal and sagittal images from the axial data. Dose modulation, iterative reconstruction, and/or weight based adjustment of the mA/kV was utilized to reduce the radiation dose to as low as reasonably achievable. Image quality: Motion/streaking artifact limits the evaluation of the skull base and posterior cranial fossa. FINDINGS: Parenchyma: 1. Dystrophic punctate calcification of the right karie-Rolandic region is likely from prior infectious or inflammatory process. 2. Subtle focal area of hypodensity adjacent to the left frontal horn/genu of the corpus callosum, likely represent a sequela from prior ischemia. 3. Previous described infarction on prior MRI in the pontomedullary region is not well visualized on current study 4. No mass or hemorrhage. No CT evidence of acute territorial vascular insult. Extra-axial spaces:No abnormal density. No extra-axial fluid collections Brain volume: Normal for age. Ventricles: No hydrocephalus or displacement. Arteries: No density suggestive of thrombus. Dural sinuses: No abnormal density. Foramen magnum: No mass, Chiari malformation, or basilar invagination. Sella: No obvious mass. Paranasal/mastoid sinuses: Imaged portions unremarkable. Skull/Scalp: No lytic or blastic lesions. No fractures. IMPRESSION: 1. No acute post traumatic intracranial abnormalities, particularly no hemorrhage. 2. No CT evidence of acute territorial cortical infarct. 3. Hypodensity adjacent to left frontal horn may represent an age indeterminate area of ischemia. If clinical concern remains for acute infarction considered brain MRI without and with contrast for further evaluation. Signed by: Dr. Dona Ojeda M.D. on 09/15/2019 7:02 PM
[2019-09-15 19:08] LABS: CREATINE KINASE MB 2.9 ng/mL (0-5.0)
[2019-09-15 19:13] LABS: ALBUMIN 3.8 g/dL (3.5-5.0); ALBUMIN/GLOBULIN RATIO 1.1 (0.8-2.0); ANION GAP 16.2 mmol/L (8-16); CALCIUM 9.6 mg/dL (8.4-10.2); POTASSIUM 4.2 mmol/L (3.5-5.1)
[2019-09-15 19:17] LABS: CLARITY,URINE CLEAR (CLEAR); COLOR,URINE YELLOW (YELLOW); LEUKOCYTE ESTERASE ,URINE NEGATIVE (NEGATIVE); NITRITE,URINE NEGATIVE (NEGATIVE)
[2019-09-15 19:18] LABS: BILIRUBIN,URINE NEGATIVE (NEGATIVE); KETONES,URINE NEGATIVE (NEGATIVE); PROTEIN,URINE DIPSTICK TRACE (NEGATIVE); URINE UROBILINOGEN 0.2 mg/dL (0.2 - 1)
--- NOTE | 2019-09-15 19:22 | NUR ---
report given to Nikunj BRAGG
[2019-09-15 19:26] LABS: RBC,URINE 0-5 /HPF (0-5)
[2019-09-15 19:27] LABS: CREATININE, SERUM 1.64 mg/dL (0.72-1.25)
[2019-09-15 19:45] LABS: INR 0.86; PROTHROMBIN TIME 12.2 seconds (11.9-14.5)
[2019-09-15 19:46] LABS: PARTIAL THROMBOPLASTIN TIME 25.7 seconds (23.8-35.5)
[2019-09-15] MEDS: FAMOTIDINE 20 MG/2 ML VIAL IV SCH (20:47)
[2019-09-15] MEDS: INSULIN LISPRO 100 UNIT/1 ML 3ML VIAL SQ SCH (20:48)
[2019-09-15] MEDS ORDERED: METFORMIN HCL500 MG PO (20:52)
[2019-09-15] MEDS ORDERED: METOPROLOL SUCC50 MG PO (20:52)
[2019-09-15] MEDS ORDERED: PRECOSE25 MG PO (20:54)
[2019-09-15] MEDS ORDERED: NOVOLIN 70100 UNIT/3 SQ (20:54)
[2019-09-15] MEDS ORDERED: ACTOS15 MG PO (20:54)
[2019-09-15 21:20] VITALS: BP 174/79
--- NOTE | 2019-09-15 23:00 | NUR ---
RECEIVED PATIENT FROM ER IN STABLE CONDITION, NO SIGNS OF DISTRESS NOTED. IV FLUIDS ARE RUNNING AT ORDERED RATE AND PATIENT VOICES NO PAIN AT THIS TIME. PATIENT DJIBOUTIAN SPEAKING AND VOICED UNDERSTANDING OF THE USE OF THE CALL LIGHT. BED IS IN LOWEST POSITION, BOTH SIDE RAILS ARE UP, BED ALARM IS ON, CALL LIGHT IS WITHIN EASY REACH, WILL CONTINUE TO MONITOR.
[2019-09-15 23:33] VITALS: BP 174/79
[2019-09-15 23:46] VITALS: BP 174/79
[2019-09-16] VITALS (7 sets, daily range): BP systolic 156–177; BP diastolic 68–108
[2019-09-16 06:18] LABS: BASOPHILS # (AUTO) 0.1 (0.0-0.1); BASOPHILS % 0.6 % (0.0-1.0); EOSINOPHILS # (AUTO) 0.1 (0.0-0.4); EOSINOPHILS % 1.5 % (0.0-6.0); HEMATOCRIT 38.5 % (38.2-49.6); LYMPHOCYTES # (AUTO) 1.5 (1.0-3.2); MEAN CORPUSCULAR HEMOGLOBIN 29.5 pg (28-32); MEAN CORPUSCULAR HGB CONC 33.8 g/dL (31-35); MEAN CORPUSCULAR VOLUME 87.5 fL (81-99); MONOCYTES # (AUTO) 0.8 (0.2-0.8); MONOCYTES % 9.9 % (4.4-11.3); NEUTROPHILS # (AUTO) 5.5 (2.1-6.9); NEUTROPHILS % 68.6 % (38.7-80.0); PLATELET COUNT 261 x10e3/uL (140-360); RED CELL DISTRIBUTION WIDTH 12.7 % (11.7-14.4)
--- NOTE | 2019-09-16 06:33 | NUR ---
H&P CHIEF COMPLAINT: weakness HISTORY OF PRESENT ILLNESS: A 69-year-old man, PCP , developed weakness, resulting in a fall on right side,with bruising of arm and knee. Pt states that there was a change in speech. Currently symptom free. PAST MEDICAL HISTORY: Myocardial infarction, status post stent placement 3 years ago, NSTEMI s/p PCI to LAD and RCA, RBBBdiabetes mellitus, type 2, which has been poorly controlled, hypertension, and hyperlipidemia, Right ischemic stroke, KEE, HTN emergency, UTI, CAD, PAST SURGICAL HISTORY: Coronary stent placement 3 years ago in 2013. ALLERGIES: PER ELECTRONIC MEDICAL RECORD. FAMILY HISTORY: Stroke in a sister who is since . The also had diabetes mellitus. SOCIAL HISTORY: The patient has a daughter who is involved in his care. Remote history of smoking. Quit about 30 years ago. No alcohol or illicits. 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 MEDICATIONS: Per electronic medical records. REVIEW OF SYSTEMS: Denies any dizziness, chest pain, shortness of breath, fever, chills, sweats, nausea, vomiting, or diarrhea; no skin rash/vision changes. PHYSICAL EXAMINATION VITAL SIGNS: revd GENERAL: A tired-appearing man resting in bed. HEENT: Anicteric. Pupils respond to light. No oral lesions. No sinus tenderness. CARDIOVASCULAR: Normal S1 and S2. LUNGS: Moderate breath sounds. No wheezing. ABDOMEN: Soft, nontender and nondistended. EXTREMITIES: No edema or calf tenderness. NEUROLOGICAL: He is alert and oriented times 3. He moves all extremities, but he has 4/5 motor strength in his left upper and lower extremity. He has no visual field deficits. SKIN: Dry. PSYCHIATRIC: Flat affect. LABS: Reviewed. MEDICATIONS: Reviewed. ASSESSMENT AND PLAN: This is a 68-year-old man: TIA- lipid; ASA; MRI/A Elderly fall- PT CAD- home meds. 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
[2019-09-16 06:42] LABS: ALBUMIN 3.3 g/dL (3.5-5.0); ALBUMIN/GLOBULIN RATIO 1.1 (0.8-2.0); ANION GAP 12.6 mmol/L (8-16); CALCIUM 9.1 mg/dL (8.4-10.2); CHOL/HDL RATIO 3.4 (3.9-4.7); CREATININE, SERUM 1.59 mg/dL (0.72-1.25); POTASSIUM 3.6 mmol/L (3.5-5.1)
[2019-09-16 07:05] LABS: CREATINE KINASE MB 1.8 ng/mL (0-5.0)
--- NOTE | 2019-09-16 07:21 | NUR ---
ASSUMED CARE. PATIENT RESTING IN BED QUIETLY. ACYANOTIC. NO DISTRESS NOTED. CALL LIGHT IN REACH. SIDE RAILS UP X2. BED LOW.
[2019-09-16] MEDS: INSULIN LISPRO 100 UNIT/1 ML 3ML VIAL SQ SCH ×4 (07:30→21:00)
[2019-09-16] MEDS ORDERED: FAMOTIDINE 20 MG TAB PO SCH (07:30)
[2019-09-16] MEDS: FAMOTIDINE 20 MG/2 ML VIAL IV SCH ×2 (09:38→22:00)
[2019-09-16] MEDS: ASPIRIN 81 MG ENTERIC COATED PO SCH (09:38)
[2019-09-16] MEDS: HEPARIN SOD (PORCINE) 5,000 UNIT/ML VIAL SC SCH ×2 (09:39→22:00)
--- OUTSIDE RECORDS SUMMARY | 2019-09-16 10:13 | XMS REPORT ---
Author Author [facility] t Organization [facility] Address [address] [place] [address] Phone Unavailable Care Team Providers Care Research Program Intern Name Role Phone NONSTAFF PCP Unavailable DIEUDONNE, A LAIRD Attphys Unavailable Mary Anne RUIZ AMBICA Attphys Unavailable SHADI CURRY Admphys Unavailable Payers Payer Name Policy Type Policy Number Effective Date Expiration Date Mary Anne ethan Medicare A & B [id number] 2015 [facility] Condition Name Condition Details Condition Category Status Onset Date Resolution Date Last Treatment Date Treating Clinician Comments Source ST elevation myocardial infarction (STEMI) STEMI (ST e levation myocardial infarction) Problem Active 2014-04-17 00:00:00 [facility] Elevated troponin I level Elevated troponin I level Problem Active [facility] Weakness due to cerebrovascular accident (CVA) Weaknes s due to cerebrovascular accident Problem Active [facility] Allergies, Adverse Reactions, Alerts Allergy Name Allergy Type Status Severity Reaction(s) Onset Date Inacti ve Date Treating Clinician Comments Source No Known Allergies DA Active U 2019-05-21 00:00:00 [facility] Medications Ordered Medication Name Filled Medication Name Start Date Stop Da te Current Medication? Ordering Clinician Indication Dosage Frequency Signature (SIG) Comments Components Source Atorvastatin 80 Mg Tab Atorvastatin 80 Mg Tab 2018-10-25 00:00:00 Yes Saul Salas Md 80 Bedtime [facility] Carvedilol (Coreg) 3.125 Mg Tab Carvedilol (Coreg) 3.125 Mg Tab 2018-10-25 00:00:00 Yes Saul Salas Md 6.25 Twice Daily With Meal s [facility] Famotidine (Pepcid) 20 Mg Tablet Famotidine (Pepcid) 20 Mg T ablet 2018-10-25 00:00:00 Yes Saul Salas Md 20 Twice A Day [facility] Amlodipine Besylate 5 Mg Tablet Amlodipine Besylate 5 Mg Tablet Yes 5 Daily [facility] Aspirin (Aspir 81) 81 Mg Tablet. Aspirin (Aspir 81) 81 Mg Tablet. Yes 81 Daily [facility] Indomethacin 25 Mg Capsule Indomethacin 25 Mg Capsule Yes 25 Daily [facility] Losartan Potassium 100 Mg Tablet Losartan Potassium 100 Mg Tablet Yes 50 Twice A Day [facility] Metformin Hcl 850 Mg Tablet Metformin Hcl 850 Mg Tablet Yes 850 Twice A Day [facility] Ticagrelor (Brilinta) 90 Mg Tablet Ticagrelor (Brilinta) 90 Mg Tablet Yes 90 Twice A Day [facility] Pravastatin Sodium 10 Mg Tablet, 10 Mg Oral Pravastati n Sodium 10 Mg Tablet, 10 Mg Oral 2018-10-25 00:00:00 No 10 Daily [facility] Carvedilol 6.25 Mg Tablet, 1 Tab Oral Carvedilol 6.25 Mg Tablet, 1 Tab Oral 2018-10-22 00:00:00 No 1 Twice A Day [facility] Clopidogrel Bisulfate (Plavix) 75 Mg Tablet, 75 Mg Ora l Clopidogrel Bisulfate (Plavix) 75 Mg Tablet, 75 Mg Oral 2018-10-22 00:00:00 No 75 Daily [facility] Nitroglycerin (Nitrostat) 0.4 Mg Tab.subl, 0.4 Mg Subl ingual Nitroglycerin (Nitrostat) 0.4 Mg Tab.subl, 0.4 Mg Sublingual 2018-10-22 00:00:00 No .4 Use As Directed as needed for Chest Pain [facility] Dazey-3 Fatty Acids (Fish Oil) 300 Mg Capsule, 300 Mg Oral Dazey-3 Fatty Acids (Fish Oil) 300 Mg Capsule, 300 Mg Oral 2018-10-22 00:00:00 No [address] [facility] [place] [place] Simvastatin (Zocor) 40 Mg Tablet, 40 Mg Oral Simvastat in (Zocor) 40 Mg Tablet, 40 Mg Oral 2018-10-22 00:00:00 No 40 Bedtime [facility] Telmisartan (Micardis) 40 Mg Tab, 40 Mg Oral Telmisart an (Micardis) 40 Mg Tab, 40 Mg Oral 2018-10-22 00:00:00 No 40 Daily [facility] Amlodipine Besylate 10 Mg Tablet, 10 Mg Oral Amlodipin e Besylate 10 Mg Tablet, 10 Mg Oral 2014-04-19 00:00:00 No 10 Daily [facility] Procedures Procedure Date / Time Performed Performing Clinician Sourc e Computed tomography of abdomen and pelvis with contrast 2018 00:00:00 CHANG HUSSEIN [facility] Encounters Start Date/Time End Date/Time En[facility] Ad[facility] Source 2019-03-04 16:41:20 Outpatient [facility] MED [id number] [facility] 2019-03-15 13:05:00 2019-03-15 13:05:00 Outpatient [facility] [id number] [facility] 2019-02-03 08:44:00 2019-02-03 08:44:00 Outpatient N MED [id number] [facility] 2018-12-23 20:12:00 2018-12-23 05:47:00 Inpatient E [facility] MED [id number] [facility] 2018-10-21 23:30:00 2018-10-21 17:22:00 Admitted Inpatient 1 [facility] [id number] [facility] Results Test Description Test Time Test Comments Results Result Comments Source CT BRAIN WO 2019-09-15 18:56:00 [facility] [address] [address] Patient Name: LG SHANKS MR #: [id number] : 1950 Age/Sex: 69/M Req #: [id number] Adm Physician: Ordered by: ANDRY BRO MD Report #: [id number] Location: ER Room/Bed: Procedure: [id number] CT/CT BRAIN WO Exam Date: 09/15/19 Exam Time: 1750 REPORT STATUS: Signed EXAMINATION: Head CT HISTORY: Status post fall, heard to speech speech, and balance COMPARISON: Head CT 07/12/2016 report TECHNIQUE: Helical axial images of the head were obtained. Reformatted coronal and sagittal images from the axial data. Dose modulation, iterative reconstruction, and/or weight based adjustment of the mA/kV was utilized to reduce the radiation dose to as low as reasonably achievable. Image quality: Motion/streaking artifact limits the evaluation of the skull base and posterior cranial fossa. FINDINGS: Parenchyma: 1. Dystrophic punctate calcification of the right karie-Rolandic region is likely from prior infectious or inflammatory process. 2. Subtle focal area of hypodensity adjacent to the left frontal horn/genu of the corpus callosum, likely represent a sequela from prior ischemia. 3. Previous described infarction on prior MRI in the pontomedullary region is not well visualized on current study 4. No mass or hemorrhage. No CT evidence of acute territorial vascular insult. Extra-axial spaces:No abnormal density. No extra-axial fluid collections Brain volume: Normal for age. Ventricles: No hydrocephalus or displacement. Arteries: No density sugg estive of thrombus. Dural sinuses: No abnormal density. Foramen magnum: No mass, Chiari malformation, or basilar invagination. Sella: No obvious mass. Paranasal/mastoid sinuses: Imaged portions unremarkable. Skull/Scalp: No lytic or blastic lesions. No fractures. IMPRESSION: 1. No acute post traumatic intracranial abnormalities, particularly no hemorrhage. 2. No CT evidence of acute territorial cortical infarct. 3. Hypodensity adjacent to left frontal horn may represent an age indeterminate area of ischemia. If clinical concern remains for acute infarction considered brain MRI without and with contrast for further evaluation. Signed by: Dr. Joelle Ojeda M.D. on 09/15/2019 7:02 PM Dictated By: JOELLE OJEDA MD 01 Transcribed By: JOSE MARIA on 09/15/191901 COPY TO: ANDRY BRO MD GLUBED 2019-05-24 07:47:00 Test Item GLUBED (test code = GLUBED) 153 mg/dL 74-106 H Performed by certified make up operator at [facility] BASIC METABOLIC [id number] 07:32:00* Test Item Value Reference Range Interpretation Comments SODIUM (test code = NA) 140 mmol/L 136-145 N POTASSIUM (test code = K) 4.3 mmol/L 3.5-5.1 N CHLORIDE (test code = CL) 109.0 mmol/L 98-107 H CARBON DIOXIDE (test code = CO2) 26.0 mmol/L 21-32 N ANION GAP (test code = GAP) 9.3 10-20 L GLUCOSE (test code = GLU) 174 mg/dL 74-106 H BLOOD UREA NITROGEN (test code = BUN) 19 mg/dL 7-18 H GLOMERULAR FILTRATION RATE (test code = GFR) 47 mL/min >=60 Estimated GFR by using Modified MDRD formula.Chronic kidney disease is defined as either kidney damageor GFR <60 mL/min/1.73 m2 for >3 months. CREATININE (test code = CREAT) 1.50 mg/dL 0.7-1.3 H BUN/CREATININE RATIO (test code = BUN/CREA) 12.7 10-20 N CALCIUM (test code = CA) 9.5 mg/dL 8.5-10.1 N BASIC METABOLIC [id number] 07:29:00* Test Item Value Reference Range Interpretation Comments SODIUM (test code = NA) 140 mmol/L 136-145 N POTASSIUM (test code = K) 4.3 mmol/L 3.5-5.1 N CHLORIDE (test code = CL) 109.0 mmol/L 98-107 H CARBON DIOXIDE (test code = CO2) mmol/L 21-32 ANION GAP (test code = GAP) 10-20 GLUCOSE (test code = GLU) mg/dL 74-106 BLOOD UREA NITROGEN (test code = BUN) mg/dL 7-18 GLOMERULAR FILTRATION RATE (test code = GFR) mL/min >=60 CREATININE (test code = CREAT) mg/dL 0.7-1.3 BUN/CREATININE RATIO (test code = BUN/CREA) 10-20 CALCIUM (test code = CA) mg/dL 8.5-10.1 CBC W/AUTO [id number] 07:15:00* Test Item Value Reference Range Interpretation Comments WHITE BLOOD CELL (test code = WBC) 9.0 K/mm3 4.5-12.5 N RED BLOOD CELL (test code = RBC) 4.48 mill/mm3 4.0-5.8 N HEMOGLOBIN (test code = HGB) 13.6 gram/dL 13.0-17.5 N HEMATOCRIT (test code = HCT) 39.9 % 42.0-52.0 L MEAN CELL VOLUME (test code = MCV) 89.1 fL 80-98 N MEAN CELL HGB (test code = MCH) 30.4 picogram 27.0-33.0 N MEAN CELL HGB CONCETRATION (test code = MCHC) 34.1 gram/dL 33.0-36. 0 N RED CELL DISTRIBUTION WIDTH (test code = RDW) 12.5 % 11.6-16. 2 N RED CELL DISTRIBUTION WIDTH SD (test code = RDW-SD) 40.8 fL 37 .0-51.0 N PLATELET COUNT (test code = PLT) 323 K/mm3 150-450 N MEAN PLATELET VOLUME (test code = MPV) 10.2 fL 6.7-11.0 N NEUTROPHIL % (test code = NT%) 72.9 % 39.0-69.0 H IMMATURE GRANULOCYTE % (test code = IG%) 0.4 % 0.0-5.0 N LYMPHOCYTE % (test code = LY%) 16.9 % 25.0-55.0 L MONOCYTE % (test code = MO%) 8.1 % 0.0-10.0 N EOSINOPHIL % (test code = EO%) 1.1 % 0.0-5.0 N BASOPHIL % (test code = BA%) 0.6 % 0.0-1.0 N NUCLEATED RBC % (test code = NRBC%) 0.0 % 0-0 N NEUTROPHIL # (test code = NT#) 6.54 K/mm3 1.8-7.7 N IMMATURE GRANULOCYTE # (test code = IG#) 0.04 x10 3/uL 0-0.03 H LYMPHOCYTE # (test code = LY#) 1.52 K/mm3 1.0-5.0 N MONOCYTE # (test code = MO#) 0.73 K/mm3 0-0.8 N EOSINOPHIL # (test code = EO#) 0.10 K/mm3 0.0-0.5 N BASOPHIL # (test code = BA#) 0.05 K/mm3 0.0-0.2 N NUCLEATED RBC # (test code = NRBC#) 0.00 K/mm3 0.0-0.1 N MANUAL DIFF REQUIRED (test code = MDIFF) NO Bedside [id number] 08:05:00* Test Item Value Reference Range Interpretation Comments Bedside Glucose (test code = 15391-5) 121 70-120 Meter ID: [id number] Kinase MB 2018-10-22 13:14:00* Test Item Value Reference Range Interpretation Comments Creatine Kinase MB (test code = 92373-9) 1.60 0-5.0 [facility] MarshallTroponin [id number] 13:14:00* Test Item Value Reference Range Interpretation Comments Troponin I (test code = CDP8688) 0.567 0-0.300 [facility] MarshallCreatine [id number] 13:03:00* Test Item Value Reference Range Interpretation Comments Creatine Kinase (test code = 2157-6) 51 30-200 [facility] MarshallHemoglobin A1c Mtgkrci2968-75-71 08:16:00 * Test Item Value Reference Range Interpretation Comments Hemoglobin A1c Percent (test code = Hemoglobin A1c Percent) 10.5 4.0-7.0 [facility] Gvmaw9888-31-37 05:10:00* Test Item Value Reference Range Interpretation Comments Sodium Level (test code = 2951-2) 133 136-145 [facility]Potassium Ldbbb3803-16-21 05:10:00* Test Item Value Reference Range Interpretation Comments Potassium Level (test code = 2823-3) 3.3 3.5-5.1 [facility] MarshallChloride Hyvuf4220-08-50 05:10:00* Test Item Value Reference Range Interpretation Comments Chloride Level (test code = 2075-0) 104 98-107 [facility] MarshallCarbon Dioxide [id number] 05:10:00* Test Item Value Reference Range Interpretation Comments Carbon Dioxide Level (test code = 2028-9) 22 22-29 [facility] MarshallAnion [id number] 05:10:00* Test Item Value Reference Range Interpretation Comments Anion Gap (test code = 36764-1) 10.3 8-16 [facility] Urea Wiqfgbek6060-28-68 05:10:00* Test Item Value Reference Range Interpretation Comments Blood Urea Nitrogen (test code = 3094-0) 12 7-26 [facility] MarshallCreatinine2019-06-27 05:10:00* Test Item Value Reference Range Interpretation Comments Creatinine (test code = 2160-0) 1.34 0.72-1.25 [facility] Marshall[facility]UN/Creatinine Zqego6070-53-34 05:10:00* Test Item Value Reference Range Interpretation Comments BUN/Creatinine Ratio (test code = 3097-3) 9 6- [facility] MarshallEstimat Glomerular Filtration Rate 2018-10-22 05:10:00* Test Item Value Reference Range Interpretation Comments Estimat Glomerular Filtration Rate (test code = 364459610) 53 >60 Ranges were taken from the National Kidney Disease Education Program and the [employer] literature.Reference ranges:60 or greater: Iefeox11-63 ( for 3 consecutive months): Chronic kidney disease 15 or less: Kidney failureCHRISTUS Good Shepherd Medical Center – MarshallGlucose Tbpxg3409-82-87 05:10:00* Test Item Value Reference Range Interpretation Comments Glucose Level (test code = IEH9435) 256 74-118 [facility] MarshallCalcium Pgpbc1773-07-22 05:10:00* Test Item Value Reference Range Interpretation Comments Calcium Level (test code = 64013-5) 8.9 8.4-10.2 [facility] MarshallTotal Gddoldgqf2636-38-30 05:10:00* Test Item Value Reference Range Interpretation Comments Total Bilirubin (test code = 1975-2) 0.6 0.2-1.2 [facility] MarshallAspartate Amino Transf (AST/SGOT) 2018-10-22 05:10:00* Test Item Value Reference Range Interpretation Comments Aspartate Amino Transf (AST/SGOT) (test code = Aspartate Amino Transf (AST/SGOT)) 15 5-34 [facility] MarshallAlanine Aminotransferase (ALT/SGPT) 2018-10-22 05:10:00* Test Item Value Reference Range Interpretation Comments Alanine Aminotransferase (ALT/SGPT) (test code = 1742-6) 19 0-55 [facility] Ksmghkn5200-00-72 05:10:00* Test Item Value Reference Range Interpretation Comments Total Protein (test code = 2885-2) 5.7 6.5-8.1 [facility] MarshallAlbumin2019-06-27 05:10:00* Test Item Value Reference Range Interpretation Comments Albumin (test code = 1751-7) 3.1 3.5-5.0 [facility] MarshallGlobulin2019-06-27 05:10:00* Test Item Value Reference Range Interpretation Comments Globulin (test code = 53606-5) 2.6 2.3-3.5 [facility] MarshallAlbumin/Globulin Gkdel3193-73-43 05:10:00 * Test Item Value Reference Range Interpretation Comments Albumin/Globulin Ratio (test code = 1759-0) 1.2 0.8-2.0 [facility] MarshallAlkaline Ayeviutkhnp1653-14-34 05:10:00* Test Item Value Reference Range Interpretation Comments Alkaline Phosphatase (test code = 6768-6) 108 40-150 [facility] MarshallTriglycerides Mgplo6840-30-06 05:10:00* Test Item Value Reference Range Interpretation Comments Triglycerides Level (test code = 2571-8) 348 0-149 [facility] MarshallCholesterol Oudeh1870-59-18 05:10:00* Test Item Value Reference Range Interpretation Comments Cholesterol Level (test code = 2093-3) 215 0-199 Less than 200 mg/dL Low Rpfh514 - 239 mg/dL Borderline Ngni624 m g/dl and greater High Risk [facility] MarshallLDL Tofcyaxydgq2014-79-71 05:10:00* Test Item Value Reference Range Interpretation Comments LDL Cholesterol (test code = 2089-1) 110 60-130 [facility] MarshallHDL Mhbbrnjvwuk3408-60-37 05:10:00* Test Item Value Reference Range Interpretation Comments HDL Cholesterol (test code = 2085-9) 35 40-60 [facility] MarshallCholesterol/HDL Dexru4383-13-61 05:10:00 * Test Item Value Reference Range Interpretation Comments Cholesterol/HDL Ratio (test code = 9830-1) 6.1 3.9-4.7 [facility] MarshallWhite Blood Jqwow6996-79-55 04:10:00* Test Item Value Reference Range Interpretation Comments White Blood Count (test code = 6690-2) 7.51 4.8-10.8 [facility] MarshallRed Blood Czvel3558-35-61 04:10:00* Test Item Value Reference Range Interpretation Comments Red Blood Count (test code = 789-8) 4.35 4.3-5.7 [facility] MarshallHemoglobin2019-06-27 04:10:00* Test Item Value Reference Range Interpretation Comments Hemoglobin (test code = 80019-4) 13.4 14.0-18.0 [facility] MarshallHematocrit2019-06-27 04:10:00* Test Item Value Reference Range Interpretation Comments Hematocrit (test code = 4544-3) 37.7 38.2-49.6 [facility] MarshallMean Corpuscular Aakrkg0138-87-35 04:10:00* Test Item Value Reference Range Interpretation Comments Mean Corpuscular Volume (test code = 787-2) 86.7 81-99 [facility] MarshallMean Corpuscular Szfkwlkylt8853-30-72 04:10:00* Test Item Value Reference Range Interpretation Comments Mean Corpuscular Hemoglobin (test code = 785-6) 30.8 28-32 [facility] MarshallMean Corpuscular Hemoglobin Concent 2018-10-22 04:10:00* Test Item Value Reference Range Interpretation Comments Mean Corpuscular Hemoglobin Concent (test code = 786-4) 35.5 31-35 [facility] MarshallRed Cell Distribution Pwuvu7655-68-51 04:10:00* Test Item Value Reference Range Interpretation Comments Red Cell Distribution Width (test code = 39863-7) 12.5 11.7 -14.4 [facility] MarshallPlatelet Rkjbc7748-19-20 04:10:00* Test Item Value Reference Range Interpretation Comments Platelet Count (test code = 777-3) 221 140-360 [facility] MarshallNeutrophils (%) (Auto)2018-10-22 04:10:00 * Test Item Value Reference Range Interpretation Comments Neutrophils (%) (Auto) (test code = 40992-5) 70.2 38.7-80.0 [facility] MarshallLymphocytes (%) (Auto)2018-10-22 04:10:00 * Test Item Value Reference Range Interpretation Comments Lymphocytes (%) (Auto) (test code = 736-9) 17.3 18.0-39.1 [facility] MarshallMonocytes (%) (Auto)2018-10-22 04:10:00* Test Item Value Reference Range Interpretation Comments Monocytes (%) (Auto) (test code = 5905-5) 10.1 4.4-11.3 [facility] MarshallEosinophils (%) (Auto)2018-10-22 04:10:00 * Test Item Value Reference Range Interpretation Comments Eosinophils (%) (Auto) (test code = 713-8) 1.6 0.0-6.0 [facility] MarshallBasophils (%) (Auto)2018-10-22 04:10:00* Test Item Value Reference Range Interpretation Comments Basophils (%) (Auto) (test code = 706-2) 0.4 0.0-1.0 [facility] MarshallIM GRANULOCYTES %2018-10-22 04:10:00* Test Item Value Reference Range Interpretation Comments IM GRANULOCYTES % (test code = IM GRANULOCYTES %) 0.4 0.0- 1.0 [facility] MarshallNeutrophils # (Auto)2018-10-22 04:10:00* Test Item Value Reference Range Interpretation Comments Neutrophils # (Auto) (test code = 751-8) 5.3 2.1-6.9 [facility] MarshallLymphocytes # (Auto)2018-10-22 04:10:00* Test Item Value Reference Range Interpretation Comments Lymphocytes # (Auto) (test code = 77288-4) 1.3 1.0-3.2 [facility] MarshallMonocytes # (Auto)2018-10-22 04:10:00* Test Item Value Reference Range Interpretation Comments Monocytes # (Auto) (test code = 742-7) 0.8 0.2-0.8 [facility] MarshallEosinophils # (Auto)2018-10-22 04:10:00* Test Item Value Reference Range Interpretation Comments Eosinophils # (Auto) (test code = 711-2) 0.1 0.0-0.4 [facility] MarshallBasophils # (Auto)2018-10-22 04:10:00* Test Item Value Reference Range Interpretation Comments Basophils # (Auto) (test code = 704-7) 0.0 0.0-0.1 [facility] MarshallAbsolute Immature Granulocyte (auto 2018-10-22 04:10:00* Test Item Value Reference Range Interpretation Comments Absolute Immature Granulocyte (auto (griselda t code = Absolute Immature Granulocyte (auto) 0.03 0-0.1 [facility] MarshallUrine [id number] 21:42:00* Test Item Value Reference Range Interpretation Comments Urine WBC (test code = 5821-4) NONE 0-5 [facility] MarshallUrine [id number] 21:42:00* Test Item Value Reference Range Interpretation Comments Urine RBC (test code = 66759-8) 0-5 0-5 [facility] MarshallUrine Yicxkwsc6255-46-09 21:42:00* Test Item Value Reference Range Interpretation Comments Urine Bacteria (test code = 97012-4) FEW NONE [facility] MarshallUrine Epithelial Eiqgt4183-85-42 21:42:00 * Test Item Value Reference Range Interpretation Comments Urine Epithelial Cells (test code = 59054-6) MODERATE NONE [facility] MarshallU[facility] Hyaline Lrdrp5165-66-95 21:42:00* Test Item Value Reference Range Interpretation Comments Urine Hyaline Casts (test code = 09268-2) 0-1 0-1 [facility] MarshallU[facility] Hlcdq4658-71-14 21:42:00* Test Item Value Reference Range Interpretation Comments Urine Mucus (test code = 8247-9) FEW RARE [facility] MarshallUrine Noxgr9919-75-67 21:32:00* Test Item Value Reference Range Interpretation Comments Urine Color (test code = 5778-6) YELLOW YELLOW [facility] MarshallUrine Kgrmyaq6207-85-27 21:32:00* Test Item Value Reference Range Interpretation Comments Urine Clarity (test code = 60864-9) CLEAR CLEAR [facility] MarshallUrine Specific Lduscje5471-06-70 21:32:00 * Test Item Value Reference Range Interpretation Comments Urine Specific [place] (test code = 5811-5) 1.025 1.010-1.02 5 [facility] MarshallUrine [id number] 21:32:00* Test Item Value Reference Range Interpretation Comments Urine pH (test code = 25447-7) 6 5-7 [facility] Marshall[facility] Leukocyte Ykqlhmgd8074-99-68 21:32:00* Test Item Value Reference Range Interpretation Comments Urine Leukocyte Esterase (test code = 28528-9) NEGATIVE NEGATIV E [facility] MarshallU[facility] Cmxeobd0723-39-67 21:32:00* Test Item Value Reference Range Interpretation Comments Urine Nitrite (test code = 41266-1) NEGATIVE NEGATIVE [facility] MarshallU[facility] Omwcvsw7687-95-38 21:32:00* Test Item Value Reference Range Interpretation Comments Urine Protein (test code = 66674-0) 2+ NEGATIVE [facility] MarshallUrine Glucose (UA)2018-10-21 21:32:00* Test Item Value Reference Range Interpretation Comments Urine Glucose (UA) (test code = 48467-6) 3+ NEGATIVE [facility] MarshallU[facility] Nnujqrj5380-93-28 21:32:00* Test Item Value Reference Range Interpretation Comments Urine Ketones (test code = 34396-7) NEGATIVE NEGATIVE [facility] Marshall[facility] Fvmhuramewwn6432-19-75 21:32:00* Test Item Value Reference Range Interpretation Comments Urine Urobilinogen (test code = 24310-1) 0.2 0.2-1 [facility] Marshall[facility] Rtpisgekb2209-06-98 21:32:00* Test Item Value Reference Range Interpretation Comments Urine Bilirubin (test code = 1977-8) NEGATIVE NEGATIVE [facility] Cxeye8437-80-91 21:32:00* Test Item Value Reference Range Interpretation Comments Urine Blood (test code = 60685-4) TRACE NEGATIVE [facility] ABDOM[facility]/PELVIS [id number] 21:27:00 [facility] [address] [place] [address] Patient Name: LG SHANKS MR #: [id number] : 1950 Age/Sex: 68/M Req #: [id number] Adm Physician: Ordered by: CHANG HUSSEIN BREAST BUFFER Report #: [id number] Location: ER Room/Bed: Procedure: 0626-[address]/CT ABDOMEN/PELVIS W Exam Date: 10/21/18 Exam Time: 2014 REPORT STATUS: Signed EXAMINATION: CT of the abdomen and pelvis with contrast. TECHNIQUE: [facility] CT images of the abdomen and pelvis were performed from the lung bases to the lesser trochanters after the intravenous administration of 100 cc of Omni paque 300 and the oral administration of none. Coronal and sagittal reformatt ed images were obtained.Dose modulation, iterative reconstruction, and/or weig ht based adjustment of the mA/kV was utilized to reduce the radiation dose to as low as reasonably achievable. COMPARISON: None. CLINICAL HISTORY: Abdominal pain. DISCUSSION: ABDOMEN/PELVIS: LOWER THORAX:Unr emarkable. HEPATOBILIARY: No focal hepatic lesions. No intra-or extrahepat ic biliary ductal dilation. The gallbladder is normal. SPLEEN: No spl enomegaly. PANCREAS: No focal masses or ductal dilatation. ADRENALS: No adrenal nodules. KIDNEYS/URETERS: No hydronephrosis, stones, or solid ma ss lesions. PELVIC ORGANS/BLADDER: The bladder is normal. PERITONEUM /RETROPERITONEUM: No free air or fluid. LYMPH NODES: No intra-abdominal, re troperitoneal, pelvic or inguinal lymphadenopathy. VESSELS: Atherosclerot ic calcifications and mild narrowing of the infrarenal abdominal aorta. G I TRACT: No distention or wall thickening. Scattered diverticulosis without in flammatory change. Appendix normal. BONES AND SOFT TISSUE: No bony destruct faith lesions. No soft tissue abnormalities. IMPRESSION: No acut e CT finding. Signed by: Dr. Teresa Barnes M.D. on 10/21/2018 9:35 PM Dictated By: TERESA BARNES MD 34 Transcribed By: JOSE MARIA on 10/21/182134 COPY TO: CHANG AMAYA BREAST BUFFER CHEST SINGLE (PORTABLE)2018-10-21 21:23:00 [facility] [address] [address] Patient Name: LG SHANKS MR #: [id number] : 1950 Age/Sex: 68/M Req #: [id number] Adm Physician: Ordered by: LUCY RUIZ MD Report #: [id number] Location: ER Room/Bed: Procedure: 59 DX/CHEST SINGLE (PORTABLE) Exam Date: 10/21/18 Ex am Time: 1909 REPORT STATUS: Signed Examination: Single AP view of the chest. COMPARISON: None. INDICA TION: Abdominal pain DISCUSSION: Lines/tubes: None. Lungs: The lungs are well inflated and clear. No pneumonia or pulmonary edema. Pl eura: No pleural effusion or pneumothorax. Heart and mediastinum: The hea rt and the mediastinum are unremarkable. Bones and soft tissues: No acute bony abnormalities. IMPRESSION: 1. No acute cardiopulmonary abnor malities. Signed by: Dr. Teresa Barnes M.D. on 10/21/2018 9:24 PM D ictated By: TERESA BARNES MD 23 COPY TO: LUCY DE LA CRUZ MD B-Type Natriuretic Lhdkyjb4428-99-24 20:21:00* Test Item Value Reference Range Interpretation Comments B-Type Natriuretic Peptide (test code = 76349-9) 171.4 0-100 [facility]2019-06-26 20:02:00* Test Item Value Reference Range Interpretation Comments Lipase (test code = 3040-3) 16 8-78 [facility]
--- OUTSIDE RECORDS SUMMARY | 2019-09-16 10:21 | XMS REPORT ---
Author Author [facility] t Organization [facility] Address [address] [place] [address] Phone Unavailable Care Team Providers Care School Based Therapist Name Role Phone NONSTAFF PCP Unavailable DIEUDONNE, A LAIRD Attphys Unavailable Mary Anne RUIZ AMBICA Attphys Unavailable SHADI CURRY Admphys Unavailable Payers Payer Name Policy Type Policy Number Effective Date Expiration Date Mary Anne ethan Medicare A & B [id number] 2015 00:00:00 [facility] Problems Condition Name Condition Details Condition Category Status Onset Date Resolution Date Last Treatment Date Treating Clinician Comments Source ST elevation myocardial infarction (STEMI) STEMI (ST e levation myocardial infarction) Problem Active 2014-04-17 00:00:00 [facility] Elevated troponin I level Elevated troponin I level Problem Active [facility] Weakness due to cerebrovascular accident (CVA) Weaknes s due to cerebrovascular accident Problem Active [facility] Allergies, Adverse Reactions, Alerts Allergy Name Allergy Type Status Severity Reaction(s) Onset Date Inacti ve Date Treating Clinician Comments Source No Known Allergies DA Active U 2019-05-21 00:00:00 [facility] Medications Ordered Medication Name Filled Medication Name Start Date Stop Da te Current Medication? Ordering Clinician Indication Dosage Frequency Signature (SIG) Comments Components Source Atorvastatin 80 Mg Tab Atorvastatin 80 Mg Tab 2018-10-25 00:00:00 Yes Saul Salas Md 80 Bedtime [facility] Carvedilol (Coreg) 3.125 Mg Tab Carvedilol (Coreg) 3.125 Mg Tab 2018-10-25 00:00:00 Yes Saul Salas Md 6.25 Twice Daily With Meal s [facility] Famotidine (Pepcid) 20 Mg Tablet Famotidine (Pepcid) 20 Mg T ablet 2018-10-25 00:00:00 Yes Saul Salas Md 20 Twice A Day [facility] Amlodipine Besylate 5 Mg Tablet Amlodipine Besylate 5 Mg Tablet Yes 5 Daily [facility] Aspirin (Aspir 81) 81 Mg Tablet. Aspirin (Aspir 81) 81 Mg Tablet. Yes 81 Daily [facility] Indomethacin 25 Mg Capsule Indomethacin 25 Mg Capsule Yes 25 Daily [facility] Losartan Potassium 100 Mg Tablet Losartan Potassium 100 Mg Tablet Yes 50 Twice A Day [facility] Metformin Hcl 850 Mg Tablet Metformin Hcl 850 Mg Tablet Yes 850 Twice A Day [facility] Ticagrelor (Brilinta) 90 Mg Tablet Ticagrelor (Brilinta) 90 Mg Tablet Yes 90 Twice A Day [facility] Pravastatin Sodium 10 Mg Tablet, 10 Mg Oral Pravastati n Sodium 10 Mg Tablet, 10 Mg Oral 2018-10-25 00:00:00 No 10 Daily [facility] Carvedilol 6.25 Mg Tablet, 1 Tab Oral Carvedilol 6.25 Mg Tablet, 1 Tab Oral 2018-10-22 00:00:00 No 1 Twice A Day [facility] Clopidogrel Bisulfate (Plavix) 75 Mg Tablet, 75 Mg Ora l Clopidogrel Bisulfate (Plavix) 75 Mg Tablet, 75 Mg Oral 2018-10-22 00:00:00 No 75 Daily [facility] Nitroglycerin (Nitrostat) 0.4 Mg Tab.subl, 0.4 Mg Subl ingual Nitroglycerin (Nitrostat) 0.4 Mg Tab.subl, 0.4 Mg Sublingual 2018-10-22 00:00:00 No .4 Use As Directed as needed for Chest Pain [facility] Wedron-3 Fatty Acids (Fish Oil) 300 Mg Capsule, 300 Mg Oral Wedron-3 Fatty Acids (Fish Oil) 300 Mg Capsule, 300 Mg Oral 2018-10-22 00:00:00 No 300 Daily [facility] Simvastatin (Zocor) 40 Mg Tablet, 40 Mg Oral Simvastat in (Zocor) 40 Mg Tablet, 40 Mg Oral 2018-10-22 00:00:00 No 40 Bedtime [facility] Telmisartan (Micardis) 40 Mg Tab, 40 Mg Oral Telmisart an (Micardis) 40 Mg Tab, 40 Mg Oral 2018-10-22 00:00:00 No 40 Daily [facility] Amlodipine Besylate 10 Mg Tablet, 10 Mg Oral Amlodipin e Besylate 10 Mg Tablet, 10 Mg Oral 2014-04-19 00:00:00 No 10 Daily [facility] Procedures Procedure Date / Time Performed Performing Clinician Sourc e Computed tomography of abdomen and pelvis with contrast 2018 00:00:00 CHANG HUSSEIN [facility] Encounters Start Date/Time End Date/Time En[facility] Ad[facility] ID Source 2019-03-04 16:41:20 Outpatient [facility] MED [id number] [facility] 2019-03-15 13:05:00 2019-03-15 13:05:00 Outpatient [facility] [id number] [facility] 2019-02-03 08:44:00 2019-02-03 08:44:00 Outpatient N MED [id number] [facility] 2018-12-23 20:12:00 2018-12-23 05:47:00 Inpatient E [facility] MED [id number] [facility] 2018-10-21 23:30:00 2018-10-21 17:22:00 Admitted Inpatient 1 LUCY RUIZ [facility] [id number] [facility] Results Test Description Test Time Test Comments Results Result Comments Source CT BRAIN WO 2019-09-15 18:56:00 [facility] [address] [address] Patient Name: LG SHANKS MR #: [id number] : 1950 Age/Sex: 69/M Req #: [id number] Adm Physician: Ordered by: ANDRY BRO MD Report #: [id number] Location: ER Room/Bed: Procedure: 5966-1227 CT/CT BRAIN WO Exam Date: 09/15/19 Exam [...] 153 mg/dL 74-106 H Performed by certified casting machine control board operator at [facility] BASIC METABOLIC CNMUK4150-78-92 07:32:00* Test Item Value Reference Range Interpretation [...] CA) 9.5 mg/dL 8.5-10.1 N BASIC METABOLIC ALVXY0246-16-12 07:29:00* Test Item Value Reference Range Interpretation [...] code = CA) mg/dL 8.5-10.1 CBC W/AUTO TAMQ2500-13-36 07:15:00* Test Item Value Reference Range Interpretation [...] REQUIRED (test code = MDIFF) NO Bedside Bdtmvtj7965-70-92 08:05:00* Test Item Value Reference Range Interpretation Comments Bedside Glucose (test code = 27614-8) 121 70-120 Meter ID: [id number] [facility] HospitalCreatine Kinase MB 2018-10-22 13:14:00* Test Item Value Reference Range Interpretation Comments Creatine Kinase MB (test code = 37067-6) 1.60 0-5.0 [facility] HospitalTroponin E0988-07-07 13:14:00* Test Item Value Reference Range Interpretation Comments Troponin I (test code = DXR4627) 0.567 0-0.300 [facility] HospitalCreatine Crhdfu9268-61-58 13:03:00* Test Item Value Reference Range Interpretation Comments Creatine Kinase (test code = 2157-6) 51 30-200 [facility] HospitalHemoglobin A1c Vtilvxf0406-67-28 08:16:00 * Test Item Value Reference Range Interpretation Comments Hemoglobin A1c Percent (test code = Hemoglobin A1c Percent) 10.5 4.0-7.0 [facility] Ngsmr9801-32-38 05:10:00* Test Item Value Reference Range Interpretation Comments Sodium Level (test code = 2951-2) 133 136-145 [facility] HospitalPotassium Uumdz5259-44-24 05:10:00* Test Item Value Reference Range Interpretation Comments Potassium Level (test code = 2823-3) 3.3 3.5-5.1 [facility] HospitalChloride Jhouq8012-15-27 05:10:00* Test Item Value Reference Range Interpretation Comments Chloride Level (test code = 2075-0) 104 98-107 [facility] HospitalCarbon Dioxide Cmjet1254-56-31 05:10:00* Test Item Value Reference Range Interpretation Comments Carbon Dioxide Level (test code = 2028-9) 22 22-29 [facility] HospitalAnion Wxg1293-79-74 05:10:00* Test Item Value Reference Range Interpretation Comments Anion Gap (test code = 83515-4) 10.3 8-16 [facility] HospitalBlood Urea Xamjhnjh1038-02-10 05:10:00* Test Item Value Reference Range Interpretation Comments Blood Urea Nitrogen (test code = 3094-0) 12 7-26 [facility] HospitalCreatinine2019-06-27 05:10:00* Test Item Value Reference Range Interpretation Comments Creatinine (test code = 2160-0) 1.34 0.72-1.25 [facility] HospitalBUN/Creatinine Uvoew1055-60-02 05:10:00* Test Item Value Reference Range Interpretation Comments BUN/Creatinine Ratio (test code = 3097-3) 9 6- [facility] HospitalEstimat Glomerular Filtration Rate 2018-10-22 05:10:00* Test Item Value Reference Range Interpretation Comments Estimat Glomerular Filtration Rate (test code = 029491142) 53 >60 Ranges were taken from the National Kidney Disease Education Program and the Caitie ional Kid[employer] Foundation literature.Reference ranges:60 or greater: Cjnouq77-26 ( for 3 consecutive months): Chronic kidney disease 15 or less: Kidney failureWilbarger General HospitalGlucose Iykjx1461-85-55 05:10:00* Test Item Value Reference Range Interpretation Comments Glucose Level (test code = CZG5490) 256 74-118 [facility] HospitalCalcium Upbda4294-87-96 05:10:00* Test Item Value Reference Range Interpretation Comments Calcium Level (test code = 40485-9) 8.9 8.4-10.2 [facility] HospitalTotal Faxufsmcg3910-54-49 05:10:00* Test Item Value Reference Range Interpretation Comments Total Bilirubin (test code = 1975-2) 0.6 0.2-1.2 [facility] HospitalAspartate Amino Transf (AST/SGOT) 2018-10-22 05:10:00* Test Item Value Reference Range Interpretation Comments Aspartate Amino Transf (AST/SGOT) (test code = Aspartate Amino Transf (AST/SGOT)) 15 5-34 [facility] HospitalAlanine Aminotransferase (ALT/SGPT) 2018-10-22 05:10:00* Test Item Value Reference Range Interpretation Comments Alanine Aminotransferase (ALT/SGPT) (test code = 1742-6) 19 0-55 [facility] Djckxdz8888-30-59 05:10:00* Test Item Value Reference Range Interpretation Comments Total Protein (test code = 2885-2) 5.7 6.5-8.1 [facility] HospitalAlbumin2019-06-27 05:10:00* Test Item Value Reference Range Interpretation Comments Albumin (test code = 1751-7) 3.1 3.5-5.0 [facility] HospitalGlobulin2019-06-27 05:10:00* Test Item Value Reference Range Interpretation Comments Globulin (test code = 42316-6) 2.6 2.3-3.5 [facility] HospitalAlbumin/Globulin Jfekm6890-42-22 05:10:00 * Test Item Value Reference Range Interpretation Comments Albumin/Globulin Ratio (test code = 1759-0) 1.2 0.8-2.0 [facility] HospitalAlkaline Iuajfvuxtqk5654-97-63 05:10:00* Test Item Value Reference Range Interpretation Comments Alkaline Phosphatase (test code = 6768-6) 108 40-150 [facility] HospitalTriglycerides Ybiec0755-59-07 05:10:00* Test Item Value Reference Range Interpretation Comments Triglycerides Level (test code = 2571-8) 348 0-149 [facility] HospitalCholesterol Emugg5006-66-40 05:10:00* Test Item Value Reference Range Interpretation Comments Cholesterol Level (test code = 2093-3) 215 0-199 Less than 200 mg/dL Low Zwxc391 - 239 mg/dL Borderline Mxbx398 m g/dl and greater High Risk [facility] HospitalLDL Drtachhvqot8248-65-30 05:10:00* Test Item Value Reference Range Interpretation Comments LDL Cholesterol (test code = 2089-1) 110 60-130 [facility] HospitalHDL Gougywnotiy1292-05-18 05:10:00* Test Item Value Reference Range Interpretation Comments HDL Cholesterol (test code = 2085-9) 35 40-60 [facility] HospitalCholesterol/HDL Dwerx2552-02-28 05:10:00 * Test Item Value Reference Range Interpretation Comments Cholesterol/HDL Ratio (test code = 9830-1) 6.1 3.9-4.7 [facility] HospitalWhite Blood Bqcnc7818-82-69 04:10:00* Test Item Value Reference Range Interpretation Comments White Blood Count (test code = 6690-2) 7.51 4.8-10.8 [facility] HospitalRed Blood Hmglq1475-34-29 04:10:00* Test Item Value Reference Range Interpretation Comments Red Blood Count (test code = 789-8) 4.35 4.3-5.7 [facility] HospitalHemoglobin2019-06-27 04:10:00* Test Item Value Reference Range Interpretation Comments Hemoglobin (test code = 48093-7) 13.4 14.0-18.0 [facility] HospitalHematocrit2019-06-27 04:10:00* Test Item Value Reference Range Interpretation Comments Hematocrit (test code = 4544-3) 37.7 38.2-49.6 [facility] HospitalMean Corpuscular Hyyhxt4920-67-92 04:10:00* Test Item Value Reference Range Interpretation Comments Mean Corpuscular Volume (test code = 787-2) 86.7 81-99 [facility] HospitalMean Corpuscular Ayrqeznhqk6503-32-34 04:10:00* Test Item Value Reference Range Interpretation Comments Mean Corpuscular Hemoglobin (test code = 785-6) 30.8 28-32 [facility] HospitalMean Corpuscular Hemoglobin Concent 2018-10-22 04:10:00* Test Item Value Reference Range Interpretation Comments Mean Corpuscular Hemoglobin Concent (test code = 786-4) 35.5 31-35 [facility] HospitalRed Cell Distribution Fobex4621-43-40 04:10:00* Test Item Value Reference Range Interpretation Comments Red Cell Distribution Width (test code = 44612-7) 12.5 11.7 -14.4 [facility] HospitalPlatelet Rxizn1897-88-01 04:10:00* Test Item Value Reference Range Interpretation Comments Platelet Count (test code = 777-3) 221 140-360 [facility] HospitalNeutrophils (%) (Auto)2018-10-22 04:10:00 * Test Item Value Reference Range Interpretation Comments Neutrophils (%) (Auto) (test code = 12544-3) 70.2 38.7-80.0 [facility] HospitalLymphocytes (%) (Auto)2018-10-22 04:10:00 * Test Item Value Reference Range Interpretation Comments Lymphocytes (%) (Auto) (test code = 736-9) 17.3 18.0-39.1 [facility] HospitalMonocytes (%) (Auto)2018-10-22 04:10:00* Test Item Value Reference Range Interpretation Comments Monocytes (%) (Auto) (test code = 5905-5) 10.1 4.4-11.3 [facility] HospitalEosinophils (%) (Auto)2018-10-22 04:10:00 * Test Item Value Reference Range Interpretation Comments Eosinophils (%) (Auto) (test code = 713-8) 1.6 0.0-6.0 [facility] HospitalBasophils (%) (Auto)2018-10-22 04:10:00* Test Item Value Reference Range Interpretation Comments Basophils (%) (Auto) (test code = 706-2) 0.4 0.0-1.0 [facility] HospitalIM GRANULOCYTES %2018-10-22 04:10:00* Test Item Value Reference Range Interpretation Comments IM GRANULOCYTES % (test code = IM GRANULOCYTES %) 0.4 0.0- 1.0 [facility] HospitalNeutrophils # (Auto)2018-10-22 04:10:00* Test Item Value Reference Range Interpretation Comments Neutrophils # (Auto) (test code = 751-8) 5.3 2.1-6.9 [facility] HospitalLymphocytes # (Auto)2018-10-22 04:10:00* Test Item Value Reference Range Interpretation Comments Lymphocytes # (Auto) (test code = 77331-5) 1.3 1.0-3.2 [facility] HospitalMonocytes # (Auto)2018-10-22 04:10:00* Test Item Value Reference Range Interpretation Comments Monocytes # (Auto) (test code = 742-7) 0.8 0.2-0.8 [facility] HospitalEosinophils # (Auto)2018-10-22 04:10:00* Test Item Value Reference Range Interpretation Comments Eosinophils # (Auto) (test code = 711-2) 0.1 0.0-0.4 [facility] HospitalBasophils # (Auto)2018-10-22 04:10:00* Test Item Value Reference Range Interpretation Comments Basophils # (Auto) (test code = 704-7) 0.0 0.0-0.1 [facility] HospitalAbsolute Immature Granulocyte (auto 2018-10-22 04:10:00* Test Item Value Reference Range Interpretation Comments Absolute Immature Granulocyte (auto (griselda t code = Absolute Immature Granulocyte (auto) 0.03 0-0.1 [facility] HospitalUrine GUT4542-54-49 21:42:00* Test Item Value Reference Range Interpretation Comments Urine WBC (test code = 5821-4) NONE 0-5 [facility] HospitalUrine LPQ5078-30-46 21:42:00* Test Item Value Reference Range Interpretation Comments Urine RBC (test code = 85527-6) 0-5 0-5 [facility] HospitalUrine Cbmspasb6927-86-72 21:42:00* Test Item Value Reference Range Interpretation Comments Urine Bacteria (test code = 39204-2) FEW NONE [facility] HospitalUrine Epithelial Mgzyb4599-88-46 21:42:00 * Test Item Value Reference Range Interpretation Comments Urine Epithelial Cells (test code = 79989-1) MODERATE NONE [facility] HospitalUrine Hyaline Mxgsg6410-30-45 21:42:00* Test Item Value Reference Range Interpretation Comments Urine Hyaline Casts (test code = 94691-3) 0-1 0-1 [facility] HospitalUrine Nfuqa4522-87-34 21:42:00* Test Item Value Reference Range Interpretation Comments Urine Mucus (test code = 8247-9) FEW RARE [facility] HospitalUrine Rxodx8834-64-11 21:32:00* Test Item Value Reference Range Interpretation Comments Urine Color (test code = 5778-6) YELLOW YELLOW [facility] HospitalUrine Khxmuhn1631-26-00 21:32:00* Test Item Value Reference Range Interpretation Comments Urine Clarity (test code = 63757-7) CLEAR CLEAR [facility] HospitalUrine Specific Uqmybrm5001-63-04 21:32:00 * Test Item Value Reference Range Interpretation Comments Urine Specific [place] (test code = 5811-5) 1.025 1.010-1.02 5 [facility] HospitalUrine uW4420-44-48 21:32:00* Test Item Value Reference Range Interpretation Comments Urine pH (test code = 80695-1) 6 5-7 [facility] HospitalU[facility] Leukocyte Mflvpsqq5756-34-42 21:32:00* Test Item Value Reference Range Interpretation Comments Urine Leukocyte Esterase (test code = 20536-4) NEGATIVE NEGATIV E [facility] HospitalUrine Buesljq4288-94-20 21:32:00* Test Item Value Reference Range Interpretation Comments Urine Nitrite (test code = 31544-3) NEGATIVE NEGATIVE [facility] HospitalU[facility] Vwfbyip2986-63-39 21:32:00* Test Item Value Reference Range Interpretation Comments Urine Protein (test code = 29997-4) 2+ NEGATIVE [facility] HospitalUrine Glucose (UA)2018-10-21 21:32:00* Test Item Value Reference Range Interpretation Comments Urine Glucose (UA) (test code = 23199-5) 3+ NEGATIVE [facility] HospitalU[facility] Hyzmxim0847-23-45 21:32:00* Test Item Value Reference Range Interpretation Comments Urine Ketones (test code = 30440-0) NEGATIVE NEGATIVE [facility] HospitalU[facility] Ljironujkyij5975-93-95 21:32:00* Test Item Value Reference Range Interpretation Comments Urine Urobilinogen (test code = 54532-9) 0.2 0.2-1 [facility] HospitalU[facility] Gmshvwveb4795-62-74 21:32:00* Test Item Value Reference Range Interpretation Comments Urine Bilirubin (test code = 1977-8) NEGATIVE NEGATIVE [facility] HospitalU[facility] Ibifa7891-50-61 21:32:00* Test Item Value Reference Range Interpretation Comments Urine Blood (test code = 14724-9) TRACE NEGATIVE [facility] HospitalCT ABDOMEN/PELVIS K0649-09-86 21:27:00 [facility] [address] [place] [address] Patient Name: LG SHANKS MR #: [id number] : 1950 Age/Sex: 68/M Req #: [id number] Adm Physician: Ordered by: CHANG HUSSEIN CAT SCAN TECHNOLOGIST Report #: [id number] Location: ER Room/Bed: Procedure: 0626-[address]/CT ABDOMEN/PELVIS W Exam Date: 10/21/18 Exam Time: 2014 REPORT STATUS: Signed EXAMINATION: CT of the abdomen and pelvis with contrast. TECHNIQUE: [facility] CT images of the abdomen and [...] MARIA on 10/21/182134 COPY TO: CHANG AMAYA CAT SCAN TECHNOLOGIST CHEST SINGLE (PORTABLE)2018-10-21 21:23:00 [facility] [address] [address] Patient Name: LG SHANKS MR #: [id number] : 1950 Age/Sex: 68/M Req #: [id number] Adm Physician: Ordered by: LUCY RUIZ MD Report #: [id number] Location: ER Room/Bed: Procedure: 59 DX/CHEST SINGLE [...] LUCY DE LA CRUZ MD B-Type Natriuretic Rworcfs0515-08-67 20:21:00* Test Item Value Reference Range Interpretation Comments B-Type Natriuretic Peptide (test code = 96180-8) 171.4 0-100 [facility] HospitalLipase2019-06-26 20:02:00* Test Item Value Reference Range Interpretation Comments Lipase (test code = 3040-3) 16 8-78 [facility]
--- NOTE | 2019-09-16 10:30 | NUR ---
Pt unavailable at this time. EVS cleaning room. Will follow up as able. FRENCH DIAZ Director Marketing Spiritual Care Department O: [phone]
--- NOTE | 2019-09-16 13:22 | Diagnostic Imaging Report ---
Examination: MRI BRAIN WO CONTRAST History: Loss of balance; fall Comparison studies: Head CT performed September 15, 2019 Technique: Sagittal T2; axial DWI, FLAIR, GRE or SWI, T1, Coronal FLAIR. Intravenous contrast: None Findings: Scalp: No abnormal signal. No masses. Bone marrow: Normal in signal intensity. Brain volume: Adequate for age. Ventricles: No hydrocephalus. Extra-axial spaces: No abnormalities. Parenchyma: There are a few scattered punctate areas of T2/FLAIR hyperintensity in the periventricular and subcortical white matter, nonspecific. Increased diffusion-weighted, FLAIR and T2 signal within the left genu and body of the corpus callosum with areas of dark signal on ADC map. Chronic lacunar infarcts are identified in the right lateral medulla and left para median sean. No masses or hemorrhage. Suprasellar and sellar region: No abnormalities. Craniocervical junction: No abnormalities. The foramen magnum is patent. No Chiari malformations. Vessels: Normal flow-voids in the arteries and sinuses. Additional findings:None. 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 No associated hemorrhage. Mild chronic microvascular ischemic change. Chronic lacunar infarcts as above. Signed by: Dr. Sanjuanita Meek M.D. on 09/16/2019 1:19 PM
--- NOTE | 2019-09-16 13:34 | Diagnostic Imaging Report ---
Examination: MRA NECK WO, MRA HEAD WO CONTRAST History: Fall. TIA. Loss of balance. Imbalance. Near-syncope. Comparison studies: None Technique: 2-D and 3-D [id number] MR angiograms of the cervical and intracranial circulations were obtained. MIP images of the arteries were isolated into the right and left cervical circulations and anterior and posterior intracranial circulations, 180 degree projections. Sagittal and coronal MPR images, and axial source images are available for evaluation. Degree of stenosis at the carotid bulbs, if present, will be calculated using NASCET criteria where the smallest diameter at the location of stenosis is compared to the diameter of the more distal non-diseased vessel lumen. Findings: Cervical MRA Aortic arch: Partially visualized with normal 3 great vessel origin. Carotid arteries: In the distal right common carotid artery, there is narrowing of the caliber which could be related to motion artifact and if a real finding could be related to atherosclerotic plaque with resultant 70% stenosis. There is mild stenosis of the distal left common carotid artery (50%). No flow abnormalities of the bilateral cervical carotid bifurcations or bilateral cervical segments. Vertebral arteries: No flow abnormalities at the origins of the vertebral arteries or through its cervical segments (V1-V3). Intracranial MRA: Internal carotid arteries: Patent.. Anterior cerebral arteries: Patent right A1 and bilateral A2 segments. Hypoplastic left A1 segment. Middle cerebral arteries: Patent M1 and M2 segments.. Vertebrobasilar circulation: Patent. Posterior cerebral arteries: Patent bilateral P1 and P2 segments.. Anatomical variants: Anterior communicating arteries: Patent. Posterior communicating arteries: Patent on the left. Not visualized on the right. Vertebral arteries:Codominant. IMPRESSION: 1. Mild stenosis of the bilateral distal common carotid arteries (70% on the right and 50% on the left). No cervical arterial occlusion. 2. No intracranial arterial stenosis or occlusion. 3. No cervical or intracranial arterial vascular malformation. Signed by: Dr. Sanjuanita Meek M.D. on 09/16/2019 1:31 PM
[2019-09-16 15:10] LABS: CREATINE KINASE MB 1.3 ng/mL (0-5.0)
--- NOTE | 2019-09-16 22:00 | NUR ---
PATIENT RESTING IN BED IN STABLE CONDITION, NO SIGNS OF DISTRESS NOTED. PATIENT VOICES NO PAIN AT THIS TIME. PATIENT MAORI SPEAKING AND VOICED UNDERSTANDING OF THE USE OF THE CALL LIGHT. BED IS IN LOWEST POSITION, BOTH SIDE RAILS ARE UP, BED ALARM IS ON, CALL LIGHT IS WITHIN EASY REACH, WILL CONTINUE TO MONITOR.
[2019-09-17] VITALS (8 sets, daily range): BP systolic 145–173; BP diastolic 76–90
--- NOTE | 2019-09-17 06:08 | NUR ---
IM- progress note O/N see below REVIEW OF SYSTEMS: Denies any dizziness, chest pain, shortness of breath, fever, chills, sweats, nausea, vomiting, or diarrhea; no skin rash/vision changes. PHYSICAL EXAMINATION VITAL SIGNS: revd GENERAL: A tired-appearing man resting in bed. HEENT: Anicteric. Pupils respond to light. No oral lesions. No sinus tenderness. CARDIOVASCULAR: Normal S1 and S2. LUNGS: Moderate breath sounds. No wheezing. ABDOMEN: Soft, nontender and nondistended. EXTREMITIES: No edema or calf tenderness. NEUROLOGICAL: He is alert and oriented times 3. He moves all extremities, but he has 4/5 motor strength in his left upper and lower extremity. He has no visual field deficits. SKIN: Dry. PSYCHIATRIC: Flat affect. LABS: Reviewed. MEDICATIONS: Reviewed. ASSESSMENT AND PLAN: This is a 68-year-old man: TIA- lipid; ASA; MRI/A Elderly fall- PT CAD- home meds. 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 Start atorvastatin; check U/S carotids; does have kidney disease- chr, will avoid CTA contrast. cont PT. Neuro eval; f/u echo. Saul Salas MD, PhD.
[2019-09-17] MEDS: INSULIN LISPRO 100 UNIT/1 ML 3ML VIAL SQ SCH ×4 (07:30→21:00)
--- NOTE | 2019-09-17 09:37 | NUR ---
Called [facility] for new consult for TIA, spoke to Reginaldo at answering service.
--- NOTE | 2019-09-17 10:08 | NUR ---
Dr. Gilliam called back to report that they do not come to this hospital, Message left for Saul Palencia at [phone].
[2019-09-17] MEDS: FAMOTIDINE 20 MG/2 ML VIAL IV SCH ×2 (10:18→21:00)
[2019-09-17] MEDS: ASPIRIN 81 MG ENTERIC COATED PO SCH (10:18)
[2019-09-17] MEDS: HEPARIN SOD (PORCINE) 5,000 UNIT/ML VIAL SC SCH ×2 (10:23→21:00)
--- NOTE | 2019-09-17 12:44 | NUR ---
Called and spoke with Dr. Gillette regarding today's consult. Dr. Gillette is aware and will see the patient tomorrow.
[2019-09-17] MEDS ORDERED: ONDANSETRON HCL 4 MG ORAL DISINTEGRATING TAB PO PRN (13:00)
[2019-09-17] MEDS: ATORVASTATIN 20 MG TAB PO SCH (21:00)
[2019-09-18] VITALS (7 sets, daily range): BP systolic 148–180; BP diastolic 70–92
--- NOTE | 2019-09-18 05:01 | NUR ---
IM- progress note O/N see below REVIEW OF SYSTEMS: Denies any dizziness, chest pain, shortness of breath, fever, chills, sweats, nausea, vomiting, or diarrhea; no skin rash/vision changes. PHYSICAL EXAMINATION VITAL SIGNS: revd GENERAL: A tired-appearing man resting in bed. HEENT: Anicteric. Pupils respond to light. No oral lesions. No sinus tenderness. CARDIOVASCULAR: Normal S1 and S2. LUNGS: Moderate breath sounds. No wheezing. ABDOMEN: Soft, nontender and nondistended. EXTREMITIES: No edema or calf tenderness. NEUROLOGICAL: He is alert and oriented times 3. He moves all extremities, but he has 4/5 motor strength in his left upper and lower extremity. He has no visual field deficits. SKIN: Dry. PSYCHIATRIC: Flat affect. LABS: Reviewed. MEDICATIONS: Reviewed. ASSESSMENT AND PLAN: This is a 68-year-old man: Acute ischemic stroke - POA- lipid; ASA; MRI/A Elderly fall- PT CAD- home meds. 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 Start atorvastatin; check U/S carotids; does have kidney disease- chr, will avoid CTA contrast. cont PT. Neuro eval; f/u echo. 09-17 start metoprolol; control BP; cont PT; d/c planning; Saul Salas MD, PhD.
[2019-09-18] MEDS: METOPROLOL TARTRATE 25 MG TAB PO SCH ×2 (06:38→16:58)
[2019-09-18] MEDS: FAMOTIDINE 20 MG/2 ML VIAL IV SCH ×2 (09:03→20:37)
[2019-09-18] MEDS: INSULIN LISPRO 100 UNIT/1 ML 3ML VIAL SQ SCH ×3 (09:03→16:57)
[2019-09-18] MEDS: ASPIRIN 81 MG ENTERIC COATED PO SCH (09:04)
[2019-09-18] MEDS: HEPARIN SOD (PORCINE) 5,000 UNIT/ML VIAL SC SCH ×2 (09:05→20:39)
[2019-09-18] MEDS ORDERED: HYDRALAZINE HCL10 MG PO (19:17)
--- NOTE | 2019-09-18 19:20 | NUR ---
D/C summary Principal Dx: Acute ischemic stroke - POA- lipid; ASA; MRI/A Systolic CHF LVEF 45%; likely chronic Elderly fall- PT Secondary Dx: CAD- home meds. 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 Start atorvastatin; check U/S carotids; does have kidney disease- chr, will avoid CTA contrast. cont PT. Neuro eval; f/u echo. 09-17 start metoprolol; control BP; cont PT; d/c planning; d/c home with PT f/u pcp 1 week and neurology clinic 10 days stable d/c>35mins Saul Salas MD, PhD.
[2019-09-18] MEDS ORDERED: HYDRALAZINE HCL 10 MG TAB PO SCH (20:00)
[2019-09-18] MEDS: ATORVASTATIN 20 MG TAB PO SCH (20:37)
--- NOTE | 2019-09-18 22:39 | Consultation ---
DATE OF CONSULTATION: Neurology Consultation Seeing patient for fall and presyncope. HISTORY OF PRESENT ILLNESS: The patient reports that he was feeling lightheaded and then collapsed, but did not lose consciousness nor did he strike his head. States this is the first time that has occurred on the patient. He does report that in the past, he has developed some mechanical falls, but nothing substantial in terms of neurophysiological dysfunction. Has a history of hypertension, does have primarily Mongolian-speaking language preferences. Denies history of chest pain, seizures, or convulsions. SOCIAL HISTORY: No tobacco, alcohol, or drugs. REVIEW OF SYSTEMS: right side loss consciousness. He has endorsed lightheadedness. PHYSICAL EXAMINATION: VITAL SIGNS: Stable. His blood pressure 140/78. He is afebrile. His heart rate is 76 and regular. HEENT: His extraocular muscles intact. Face symmetric. Tongue is midline. Speech is clear. No nuchal rigidity. EXTREMITIES: He has a 5/5 strength in the upper and lower extremities. Reflexes diminished, there is significant neuropathy. NEUROLOGIC: Sensory is grossly intact. Motor intact on exam. No tremors, no drifts. When he stands he does have any findings. ASSESSMENT AND PLAN: The patient comes in with mechanical fall preceding lightheadedness. No underlying evidence of seizure activity. Outpatient followup with the Physical Therapy, Neurology, Cardiology is warranted. At this time, the patient is okay to be discharged home on current medications without any new acute intervention. MARINA HOBBS MD RR/MODL /[id number]
== END 2019-09-18 22:12 | disposition home or self-care (01) | DRG 66 ==
LOC: ER 16:03 → ERHOLD 18:41 → MED/SURG 22:32 → OBSVTOIN 09-17 16:43
PROVIDERS: ADMIT Internal Medicine; ATTEND Internal Medicine
DX: I63.9 Cerebral infarction, unspecified (principal); I25.10 Atherosclerotic heart disease of native coronary artery without angina pectoris; I13.10 Hypertensive heart and chronic kidney disease without heart failure, with stage 1 through stage 4 chronic kidney disease, or unspecified chronic kidney disease; N18.3 Chronic kidney disease, stage 3 (moderate); E11.22 Type 2 diabetes mellitus with diabetic chronic kidney disease; E78.5 Hyperlipidemia, unspecified; I25.2 Old myocardial infarction; Z95.5 Presence of coronary angioplasty implant and graft; Z11.59 Encounter for screening for other viral diseases; Z91.81 History of falling
CPT/HCPCS: 36415; 70450; 70544; 70547; 70551; 80053; 80061; 81001; 82550; 82553; 82948; 83036; 84484; 85025; 85610; 85730; 87086; 87635; 93005; 93306; 93880; 96372; 97139; 99284; G0378; J1644; J7030